=== PATIENT | male | born 1935 ===

== ENCOUNTER 2018-07-22 06:04 | Inpatient (IN) | payer MEDICARE ==
[2018-07-15 10:06] VITALS: BMI 25.7
[2018-07-22] MEDS ORDERED: Absorbable Gelatin Sponge Size 12-7 ONE (07:35)
[2018-07-22] MEDS ORDERED: Lidocaine 1% Inj (20ml) ONE (07:35)
[2018-07-22] MEDS ORDERED: Thrombin Topical 5,000 Int Units Spray Kit ONE (07:36)
[2018-07-22] MEDS ORDERED: Bacitracin Ointment 30 GM TUBE ONE (07:36)
[2018-07-22] MEDS ORDERED: ceFAZolin IV 1 gm in Dextrose 1 GM/50 ML BAG IVPB ONE (07:36)
--- NOTE | 2018-07-22 07:52 | CP.PCM.HP ---
Addendum entered by Isa Guerrero MD 07/22/18 19:25: Surrogate Decision maker - son Oscar Original Note: <Agus Barrera - Last Filed: 07/22/18 13:35> History of Present Illness - History of Present Illness History of Present Illness: Patient seen and examined at bedside. History from sons and chart. 83M with multiple co-morbidities c/o of continued right shoulder pain after surgery ~3yrs ago. He has agreed to elective revision of RIGHT shoulder. Today he denies SOB, chest pain, palpitations, dysuria, cough, calf pain. PMH: CAD, A-fib, AICD, Asthma, Hypothyroid PSH: b/l shoulder surgeries, AICD placement, PCI w/ stents x2 Present on Admission - Present on Admission Any Indicators Present on Admission: No Review of Systems - Constitutional Constitutional: absent: Chills, Fever, Headache - Cardiovascular Cardiovascular: absent: Chest Pain, Pedal Edema - Respiratory Respiratory: absent: Cough - Gastrointestinal Gastrointestinal: absent: Abdominal Pain, Loose Stools, Nausea, Vomiting - Integumentary Integumentary: absent: Rash, Swelling Past Patient History - Past Medical History & Family History Past Medical History?: Yes - Past Social History Smoking Status: Former Smoker - CARDIAC Hx Cardiac Disorders: Yes Hx Cardia Arrhythmia: Yes (afib) Hx Hypercholesterolemia: Yes Hx Hypertension: Yes Hx Hypotension: Yes Hx Pacemaker: Yes Other/Comment: cardiac pacemaker stent LAD - PULMONARY Hx Asthma: Yes (allergic) - NEUROLOGICAL Hx Neurological Disorder: No - HEENT Hx HEENT Problems: No - RENAL Hx Chronic Kidney Disease: No - ENDOCRINE/METABOLIC Hx Endocrine Disorders: No - HEMATOLOGICAL/ONCOLOGICAL Hx Blood Disorders: No - INTEGUMENTARY Hx Dermatological Problems: No - MUSCULOSKELETAL/RHEUMATOLOGICAL Hx Musculoskeletal Disorders: Yes Hx Arthritis: Yes - GASTROINTESTINAL Hx Gastrointestinal Disorders: Yes Hx Gastritis: Yes - GENITOURINARY/GYNECOLOGICAL Hx Genitourinary Disorders: No - PSYCHIATRIC Hx Psychophysiologic Disorder: No - SURGICAL HISTORY Hx Surgeries: Yes Hx Angioplasty: Yes (PTCA) Hx Arthroscopy: Yes (L shoulder) Hx Cataract Extraction: Yes Hx Coronary Stent: Yes (LAD) Hx Joint Replacement: Yes (Left TSA approx 2012, Right TSA approx 2014) - ANESTHESIA Hx Anesthesia: Yes Hx Anesthesia Reactions: No Meds Allergies/Adverse Reactions: Allergies Allergy/AdvReac Type Severity Reaction Status Date / Time No Known Allergies Allergy Verified 07/15/18 10:05 Physical Exam - Constitutional Appears: Well, Non-toxic, No Acute Distress - Head Exam Head Exam: ATRAUMATIC, NORMOCEPHALIC - Eye Exam Eye Exam: EOMI, Normal appearance - ENT Exam ENT Exam: Mucous Membranes Moist Additional comments: hearing loss in right ear, hearing aid to assist hearing in left ear - Neck Exam Neck exam: Positive for: Normal Inspection - Respiratory Exam Respiratory Exam: Clear to Auscultation Bilateral, NORMAL BREATHING PATTERN - Cardiovascular Exam Cardiovascular Exam: Irregular Rhythm. absent: JVD - GI/Abdominal Exam GI & Abdominal Exam: Normal Bowel Sounds, Soft - Extremities Exam Extremities exam: Positive for: normal capillary refill, pedal pulses present. Negative for: pedal edema - Back Exam Back exam: NORMAL INSPECTION - Neurological Exam Neurological exam: Alert, Oriented x3 - Psychiatric Exam Psychiatric exam: Normal Affect, Normal Mood - Skin Skin Exam: Dry, Intact, Warm Results - Vital Signs Recent Vital Signs: Last Vital Signs Temp 98.7 F 07/22/18 06:47 Pulse 61 07/22/18 06:50 Resp 20 07/22/18 06:47 BP 146/74 07/22/18 06:47 Pulse Ox 96 07/22/18 06:47 - Labs Labs: Laboratory Results - last 24 hr 07/22/18 06:30 Crossmatch See Detail BBK History Checked Patient has bt Assessment & Plan - Assessment and Plan (Free Text) Assessment: 83 yo male patient with extensive pmhx seen and examined in SDS today for right shoulder surgery. Plan: (1) Right shoulder pain Assessment and Plan: Pt failed conservative measures to control pain and now elective revision of RIGHT shoulder. All labs, imaging, cardiac clearance, EP evaluation, and medical clearance in chart. Repeat potassium for outpatient value of 5.5. 4.7 potassium taken last week. Patient otherwise remains medically optimized for proposed surgical procedure. Pain management, PT, and DVT prophylaxis to be addressed by orthopedics service post-op. - Admit - Revision RIGHT shoulder Status: Acute (2) CAD (coronary artery disease) Assessment and Plan: Stents x2, AICD in place and device interrogated 05/10/2018 without acute findings. Pradaxa stopped 07/18/2018 - EP eval after surgery - Resume medications post-op as appropriate Status: Acute (3) Atrial fibrillation Assessment and Plan: Patient has AICD in place and device was interrogated 05/10/2018 without acute findings. Pradaxa stopped 07/18/2018. - EP eval after surgery Status: Acute (4) Hypothyroid Assessment and Plan: Asymptomatic, TSH shows medication needs to be adjusted and will be addressed after surgical procedure. - Decrease Synthroid 88mcg down to 50mcg Status: Acute (5) Asthma Assessment and Plan: Asymptomatic, chronic, controlled. - Resume home medications post-op Status: Acute - Date & Time Date: 07/22/18 Time: 07:50 <Isa Guerrero Marifer - Last Filed: 07/22/18 16:44> Results - Vital Signs Recent Vital Signs: Last Vital Signs Temp 95.9 F L 07/22/18 16:00 Pulse 60 07/22/18 16:15 Resp 18 07/22/18 16:15 BP 117/66 07/22/18 16:15 Pulse Ox 100 07/22/18 16:15 - Labs Labs: Laboratory Results - last 24 hr 07/22/18 07/22/18 07/22/18 01:05 01:30 06:30 Fluid Type Synovial fluid Synovial fluid Synovial WBC 505.0 H 426.0 H Synovial RBC 95257.0 H 792937.0 H Synovial Neutrophils 62.0 H 69.0 H Synovial Lymphocytes 20.0 H 21.0 H Synov Monos/Macrophage 18 H 10 H Synovial Fluid Comment Moderately bloody Grossly bloody Blood Type A POSITIVE Antibody Screen Negative Crossmatch See Detail BBK History Checked Patient has bt 07/22/18 07/22/18 11:40 14:04 Fluid Type Synovial fluid Synovial fluid Synovial WBC 604.0 H 80.0 Synovial RBC 70488.9 H 80239.0 H Synovial Neutrophils 50.0 H 52.0 H Synovial Lymphocytes 32.0 H 33.0 H Synov Monos/Macrophage 18 H 15 H Synovial Fluid Comment Moderately bloody Bloody Blood Type Antibody Screen Crossmatch BBK History Checked Decision To Admit - Pt Status Changed To: Hospital Disposition Of: Inpatient - Admit Certification Admit to Inpatient:: After my assessment, the patient will require hospitalization for at least two midnights. This is because of the severity of symptoms shown, intensity of services needed, and/or the medical risk in this patient being treated as an outpatient. - . Bed Request Type: Telemetry Admitting Physician: Isa Guerrero Attending/Attestation - Attestation I have personally seen and examined this patient.: Yes I have fully participated in the care of the patient.: Yes I have reviewed all pertinent clinical information: Yes Notes (Text): Severe Pain Right Shoulder Replacement - scheduled for Revision - Pt was optimized by his Neurology Teacher ( Dr Laguna) and his PMD for this surgery - off Pradaxa the past 4 days - PT/OT consult
--- NOTE | 2018-07-22 08:07 | CP.PCM.CON ---
History of Present Illness - History of Present Illness History of Present Illness: Orthopedic consultation: Dr. Schaffer Patient is an 83 y/o RHD male with PMH of HTN, HLD, CAD with pacemaker and afib (on pradaxa, held x4 days) who presents for elective revision right TSR. Patient had history of right shoulder resurfacing/replacement approximately 3 years ago which has failed, making it extremely difficult to perform his usual activities. He also had successful left TSR in [address] Schaffer. He was scheduled for this surgery last week, but rescheduled due to instrument contamination. He denies radiation of pain/numbness/tingling. He also denies CP/SOB/N/V/D/fever/dysuria/melena. Review of Systems - Review of Systems All systems: reviewed and no additional remarkable complaints except Review of Systems: as per HPI Past Patient History - Past Medical History & Family History Past Medical History?: Yes Past Family History: Reviewed and not pertinent - Past Social History Smoking Status: Former Smoker Alcohol: None Drugs: Denies - CARDIAC Hx Cardiac Disorders: Yes Hx Cardia Arrhythmia: Yes (afib) Hx Hypercholesterolemia: Yes Hx Hypertension: Yes Hx Hypotension: Yes Hx Pacemaker: Yes Other/Comment: cardiac pacemaker stent LAD - PULMONARY Hx Asthma: Yes (allergic) - NEUROLOGICAL Hx Neurological Disorder: No - HEENT Hx HEENT Problems: No - RENAL Hx Chronic Kidney Disease: No - ENDOCRINE/METABOLIC Hx Endocrine Disorders: No - HEMATOLOGICAL/ONCOLOGICAL Hx Blood Disorders: No - INTEGUMENTARY Hx Dermatological Problems: No - MUSCULOSKELETAL/RHEUMATOLOGICAL Hx Musculoskeletal Disorders: Yes Hx Arthritis: Yes - GASTROINTESTINAL Hx Gastrointestinal Disorders: Yes Hx Gastritis: Yes - GENITOURINARY/GYNECOLOGICAL Hx Genitourinary Disorders: No - PSYCHIATRIC Hx Psychophysiologic Disorder: No - SURGICAL HISTORY Hx Surgeries: Yes Hx Angioplasty: Yes (PTCA) Hx Arthroscopy: Yes (L shoulder) Hx Cataract Extraction: Yes Hx Coronary Stent: Yes (LAD) Hx Joint Replacement: Yes (Left TSA approx 2012, Right TSA approx 2014) - ANESTHESIA Hx Anesthesia: Yes Hx Anesthesia Reactions: No Meds Allergies/Adverse Reactions: Allergies Allergy/AdvReac Type Severity Reaction Status Date / Time No Known Allergies Allergy Verified 07/15/18 10:05 - Medications Medications: as per Med rec Physical Exam - Constitutional Appears: Well, No Acute Distress - Head Exam Head Exam: ATRAUMATIC, NORMOCEPHALIC - Eye Exam Eye Exam: EOMI, Normal appearance, PERRL - ENT Exam ENT Exam: Mucous Membranes Moist Additional comments: L hearing aid - Respiratory Exam Respiratory Exam: NORMAL BREATHING PATTERN - GI/Abdominal Exam GI & Abdominal Exam: Soft. absent: Tenderness - Extremities Exam Additional comments: R shoulder: old deltopectoral incision well healed no tenderness, no swelling, no masses Limited ROM with pain sensation and motor intact MN/UN/RN radial pulse intact - Neurological Exam Neurological exam: Alert, Oriented x3 - Psychiatric Exam Psychiatric exam: Normal Affect, Normal Mood - Skin Skin Exam: Normal Color, Warm Results - Vital Signs Recent Vital Signs: Last Vital Signs Temp 98.7 F 07/22/18 06:47 Pulse 61 07/22/18 06:50 Resp 20 07/22/18 06:47 BP 146/74 07/22/18 06:47 Pulse Ox 96 07/22/18 06:47 - Labs Labs: Laboratory Results - last 24 hr 07/22/18 06:30 Blood Type A POSITIVE Antibody Screen Negative Crossmatch See Detail BBK History Checked Patient has bt Assessment & Plan (1) Pain due to right shoulder joint prosthesis Assessment and Plan: -OR today for revision R TSR -NPO -admit to hospitalist -Dr. Zurita consult for postop cardiac management -Risks/benefits/alternatives were explained to patient and 2 sons at bedside. They express understanding and agree to proceed with procedure above. -Above d/w Dr. Schaffer in agreement Status: Acute
[2018-07-22] MEDS ORDERED: Lactated Ringer's 1,000 ML IV ONE ×2 (08:44→13:33)
[2018-07-22] MEDS ORDERED: Rocuronium 10 mg/ml (5 ml) ONE ×2 (09:05→12:35)
[2018-07-22] MEDS ORDERED: Succinylcholine 200 mg/10 ml Inj IV ONE (09:05)
[2018-07-22] MEDS ORDERED: Etomidate 20 mg/10ml Inj IV ONE (09:05)
[2018-07-22] MEDS ORDERED: Propofol 10 mg/ml Inj (20 ML) ONE (09:05)
[2018-07-22] MEDS ORDERED: Sodium Chloride 0.9% 10 ML IV ONE (09:12)
[2018-07-22] MEDS ORDERED: Ropivacaine 0.5% 30ML IV ONE (09:14)
[2018-07-22] MEDS ORDERED: EPINEPHrine 1 mg/ml (1:1000) Inj ONE (11:51)
[2018-07-22] MEDS ORDERED: Sodium Chloride 0.9% 1,000 ML IV ONE (12:10)
[2018-07-22] MEDS ORDERED: Dexamethasone 4 mg/1 ml ONE (12:29)
[2018-07-22] MEDS ORDERED: EPINEPHrine 1 mg/ml (1:1000) Inj IV ONE (12:33)
[2018-07-22 13:05] LABS: FLUID TYPE SYNOVIAL FLUID
[2018-07-22 13:23] LABS: FLUID TYPE SYNOVIAL FLUID
[2018-07-22 13:35] LABS: FLUID TYPE SYNOVIAL FLUID
[2018-07-22] MEDS ORDERED: Neostigmine 1:1000 (1 mg/ml) Inj ONE (14:22)
[2018-07-22 15:04] LABS: SF GROSS APPEARANCE CLOUDY (CLEAR); SYNOVIAL FLUID COMMENT MODERATELY BLOODY
[2018-07-22 15:05] LABS: SF GROSS APPEARANCE CLOUDY (CLEAR); SYNOVIAL FLUID COMMENT MODERATELY BLOODY
[2018-07-22 15:07] LABS: SF GROSS APPEARANCE TURBID (CLEAR); SYNOVIAL FLUID COMMENT GROSSLY BLOODY
[2018-07-22 15:12] LABS: FLUID TYPE SYNOVIAL FLUID; SF GROSS APPEARANCE CLOUDY (CLEAR); SYNOVIAL FLUID COMMENT BLOODY
[2018-07-22] MEDS ORDERED: oxyCODONE 5 mg Immediate Release Tab PO PRN (15:20)
[2018-07-22] MEDS ORDERED: Dexamethasone 4 mg/1 ml IVP PRN (15:31)
[2018-07-22] MEDS ORDERED: HYDROmorphone 0.5 mg/0.5 ml ISec IVP PRN (15:31)
--- NOTE | 2018-07-22 15:35 | PCM.ANESB1 ---
Interscalene Block - Brachial Plexus Date of Procedure: 07/22/18 Anesthesiologist: Malcolm Pond Pre-Procedure Diagnosis: R shoulder arthritis Post-Procedure Diagnosis: R shoulder arthritis Procedure Performed: Interscalene Block of Brachial Plexus Right - Procedure Interscalene Block of Brachial Plexus: This procedure was explained to the patient that it is for post-operative pain management. Consent was obtained after a thorough discussion with the patient regarding the benefits and possible complications of local anesthetic block of the Brachial Plexus at the Interscalene area. The patient was brought to the Operating Room and standard monitors were applied. Time out was held with the circulating nurse to confirm the correct surgery and appropriate block. After applying Oxygen by nasal cannula and administering IV Sedation, the patient's head was gently rotated away from the Right operative shoulder and the anterior scalene groove was carefully palpated. The ultrasound transducer was then applied to the skin in the transverse plane and the brachial plexus was visualized lateral to the carotid artery and in between the anterior and middle scalene muscles. After identification,the anterior lateral portion of the neck was prepped with Chloroprep solution three times and Lidocaine 1% was injected subcutaneously for topical analgesia. At this point, a # 22 gauge Stimuplex 2 inches insulated needle was inserted into the interscalene groove and directed in a caudal and midline direction. The needle was inserted lateral to the ultrasound transducer in-plane towards the brachial plexus in a [id number] direction. Needle advancement was performed carefully under direct ultrasound visualization. Nerve stimulator was used and twitched of the affected extremity including the hand brachialis muscles, biceps and the deltoid was obtained at a current of 0.4 MA. After repeated negative aspiration, 30cc of 0.5% ropivacaine was injected in 5cc aliquots. Under ultrasound guidance the local anesthetics were observed surrounding the roots of the brachial plexus. The needle was removed intact and sterile dressing was applied. The patient had stable vital signs, was conscious and in no apparent distress. The patient tolerated the interscalene block of the bracheal plexus well with stable vital signs and was prepared for subsequent surgery.
--- NOTE | 2018-07-22 16:01 | PCM.SURG1 ---
Surgeon's Initial Post Op Note - Surgeon's Notes Surgeon: Sarbjit Seamless Tube Roller: ROMAN Adrian/ 2nd assist Colt Andres Type of Anesthesia: General Endo, Block Regional Anesthesia Administered By: DR Malcolm Pond Pre-Operative Diagnosis: Failed,Painful R total shoulder replacemnt Operative Findings: aseptic loosening humeral component. tear R rotator cuff. synvoitis/capsular contracture. no eviudence for deep sepsis Post-Operative Diagnosis: as above Operation Performed: Revision R Total Shoulder Replacement. primary repqair R rotator cuff. arthrotomy/synovectomy/debriement osteophytes. autograft bone graft Specimen/Specimens Removed: bone synovium/failed prosthesis Estimated Blood Loss: EBL {In ML}: 75 Blood Products Given: N/A Drains Used: Wound Vac Post-Op Condition: Fair Date of Surgery/Procedure: 07/22/18 Time of Surgery/Procedure: 12:40 (time inm room 10:52/ anetshesia indcution time 1052)
--- NOTE | 2018-07-22 16:06 | RAD ---
Date of service: 07/22/2018 PROCEDURE: Radiographs of the Right Shoulder HISTORY: s/p R revision TSR COMPARISON: No prior. FINDINGS: BONES: Postoperative findings related to right shoulder replacement JOINTS: Expected findings in the right shoulder joint in Agus soft tissues. SOFT TISSUES: Normal. OTHER FINDINGS: None. IMPRESSION: Satisfactory postoperative status.
[2018-07-22 16:09] LABS: SYNOVIAL FLUID MONO/MACROPHAGE 18 % (0-0)
[2018-07-22 16:10] LABS: SYNOVIAL FLUID MONO/MACROPHAGE 10 % (0-0)
[2018-07-22 16:10] LABS: SYNOVIAL FLUID MONO/MACROPHAGE 18 % (0-0)
[2018-07-22 16:11] LABS: SYNOVIAL FLUID MONO/MACROPHAGE 15 % (0-0)
[2018-07-22] MEDS ORDERED: Albuterol HFA 90 mcg/actuation (8 g) IH PRN (16:46)
[2018-07-22] MEDS ORDERED: ceFAZolin IV 2 gm in Dextrose 2 GM/50 ML BAG IVPB SCH (17:00)
[2018-07-22] MEDS: Lactated Ringer's 1,000 ML IV SCH (18:46)
[2018-07-22] MEDS: Fluticasone-Salmeterol 250-50mcg Diskus INH SCH ×2 (18:47→18:57)
--- NOTE | 2018-07-22 19:08 | CARD ---
APPROVED REPORT Date of service: 07/22/2018 EKG Measurement Heart [id number] <Conclusion> Atrial-paced rhythm with prolonged AV conduction Abnormal ECG
--- NOTE | 2018-07-22 19:27 | CP.PCM.PN ---
Subjective - Date & Time of Evaluation Date of Evaluation: 07/22/18 Time of Evaluation: 19:20 - Subjective Subjective: initial id note patient just out of O,R. HISTORY NOTED ON CHART AWAIT LABS AND CULTURES WILL GIVE I DOSE VANCOMYCIN REVIEW IN AM Objective - Vital Signs/Intake and Output Vital Signs (last 24 hours): Temp Pulse Resp BP Pulse Ox 98.4 F 63 18 116/61 97 07/22/18 17:30 07/22/18 19:03 07/22/18 17:30 07/22/18 17:30 07/22/18 17:30 Intake and Output: 07/22/18 07/23/18 18:59 06:59 Intake Total 2150 Output Total 700 Balance 1450 - Medications Medications: Current Medications Acetaminophen (Tylenol 325mg Tab) 975 mg PO Q8 [facility] Last Admin: 07/22/18 18:56 Dose: 975 mg Albuterol (Ventolin Hfa 90 Mcg/Actuation (8 G)) 90 puff IH RQID PRN PRN Reason: Wheezing Amlodipine Besylate (Norvasc) 5 mg PO DAILY [facility] Atorvastatin Calcium (Lipitor) 40 mg PO HS [facility] Docusate Sodium (Colace) 100 mg PO BID [facility] Last Admin: 07/22/18 18:48 Dose: 100 mg Lactated Ringer's (Lactated Ringer's) 1,000 mls @ 100 mls/hr IV .Q10H [facility] Last Admin: 07/22/18 18:46 Dose: 100 mls/hr Levothyroxine Sodium (Synthroid) 88 mcg PO DAILY@0630 [facility] Meclizine HCl (Antivert) 12.5 mg PO TID PRN PRN Reason: Dizziness Midodrine (Proamatine) 5 mg PO DAILY [facility] Montelukast Sodium (Singulair) 10 mg PO QPM [facility] Last Admin: 07/22/18 18:48 Dose: 10 mg Morphine Sulfate (Morphine) 2 mg IVP Q4 PRN PRN Reason: Pain, severe (8-10) Nitroglycerin (Nitrostat Sl Tab) 0.4 mg SL DAILY PRN PRN Reason: Pain, Mild (1-3) Ondansetron HCl (Zofran Inj) 4 mg IVP ONCE PRN PRN Reason: Nausea/Vomiting Oxycodone HCl (Oxycodone Immediate Release Tab) 5 mg PO Q6 PRN PRN Reason: Pain, Mild (1-3) Oxycodone HCl (Oxycodone Immediate Release Tab) 10 mg PO Q6 PRN PRN Reason: Pain, moderate (4-7) Fluticasone/Salmeterol (Advair Diskus 250/50) 1 puff INH BID [facility] Last Admin: 07/22/18 18:57 Dose: Not Given Theophylline (Francisco-24) 100 mg PO DAILY [facility]
[2018-07-23 05:40] LABS: HEMOGLOBIN 11.8 g/dL (12.0-18.0); MEAN CELL VOLUME 88.3 fl (80.0-94.0); MEAN CORPUSCULAR HEMOGLOBIN 29.4 pg (27.0-31.0); MEAN CORPUSCULAR HGB CONC 33.3 g/dL (33.0-37.0); RBC 4.01 Mil/uL (4.40-5.90); RED CELL DISTRIBUTION WIDTH 15.1 % (11.5-14.5); WHITE BLOOD COUNT 10.8 K/uL (4.8-10.8)
[2018-07-23] MEDS: Levothyroxine 88 MCG TAB PO SCH (05:51)
[2018-07-23 07:57] LABS: BLOOD UREA NITROGEN 22 mg/dl (9-20)
[2018-07-23 07:58] LABS: CALCIUM 8.9 mg/dL (8.4-10.2); GFR NON-AFRICAN AMERICAN 58
--- NOTE | 2018-07-23 07:58 | CP.PCM.PN ---
<Neil Barrerason - Last Filed: 07/23/18 16:05> Subjective - Date & Time of Evaluation Date of Evaluation: 07/23/18 Time of Evaluation: 07:58 - Subjective Subjective: 83 yo male patient seen and evaluated at bedside resting comfortably. Sons present to translate. States he is in minimal pain and comfortable. Seen by PT and states was able to ambulate with assistance of cane and sons around his home to help him with recovery. Denies N/V/F/C/SOB/CP and has no new acute complaints. Objective - Vital Signs/Intake and Output Vital Signs (last 24 hours): Temp Pulse Resp BP Pulse Ox 98 F 67 18 117/81 96 07/23/18 05:00 07/23/18 05:00 07/23/18 05:00 07/23/18 05:00 07/23/18 05:00 - Medications Medications: Current Medications Acetaminophen (Tylenol 325mg Tab) 975 mg PO Q8 [facility] Last Admin: 07/23/18 00:24 Dose: 975 mg Albuterol (Ventolin Hfa 90 Mcg/Actuation (8 G)) 90 puff IH RQID PRN PRN Reason: Wheezing Amlodipine Besylate (Norvasc) 5 mg PO DAILY [facility] Atorvastatin Calcium (Lipitor) 40 mg PO HS [facility] Last Admin: 07/22/18 22:00 Dose: 40 mg Docusate Sodium (Colace) 100 mg PO BID [facility] Last Admin: 07/22/18 18:48 Dose: 100 mg Lactated Ringer's (Lactated Ringer's) 1,000 mls @ 100 mls/hr IV .Q10H [facility] Last Admin: 07/22/18 18:46 Dose: 100 mls/hr Levothyroxine Sodium (Synthroid) 88 mcg PO DAILY@0630 [facility] Last Admin: 07/23/18 05:51 Dose: 88 mcg Meclizine HCl (Antivert) 12.5 mg PO TID PRN PRN Reason: Dizziness Midodrine (Proamatine) 5 mg PO DAILY [facility] Montelukast Sodium (Singulair) 10 mg PO QPM [facility] Last Admin: 07/22/18 18:48 Dose: 10 mg Morphine Sulfate (Morphine) 2 mg IVP Q4 PRN PRN Reason: Pain, severe (8-10) Nitroglycerin (Nitrostat Sl Tab) 0.4 mg SL DAILY PRN PRN Reason: Pain, Mild (1-3) Ondansetron HCl (Zofran Inj) 4 mg IVP ONCE PRN PRN Reason: Nausea/Vomiting Oxycodone HCl (Oxycodone Immediate Release Tab) 5 mg PO Q6 PRN PRN Reason: Pain, Mild (1-3) Oxycodone HCl (Oxycodone Immediate Release Tab) 10 mg PO Q6 PRN PRN Reason: Pain, moderate (4-7) Fluticasone/Salmeterol (Advair Diskus 250/50) 1 puff INH BID [facility] Last Admin: 07/22/18 18:57 Dose: Not Given Theophylline (Francisco-24) 100 mg PO DAILY [facility] - Labs Labs: 07/23/18 05:16 07/23/18 05:16 - Constitutional Appears: Well, Non-toxic, No Acute Distress - Head Exam Head Exam: ATRAUMATIC, NORMOCEPHALIC - Eye Exam Eye Exam: Normal appearance - ENT Exam ENT Exam: Mucous Membranes Moist Additional comments: hearing loss in right ear, hearing aid to assist hearing in left ear - Respiratory Exam Respiratory Exam: Clear to Ausculation Bilateral, NORMAL BREATHING PATTERN - Cardiovascular Exam Cardiovascular Exam: Irregular Rhythm. absent: JVD - GI/Abdominal Exam GI & Abdominal Exam: Soft, Normal Bowel Sounds - Extremities Exam Extremities Exam: Normal Capillary Refill. absent: Tenderness (pedal pulses present) Additional comments: Shoulder dressing c/d/i gross and neuro sensation and pulses intact - Back Exam Back Exam: NORMAL INSPECTION - Neurological Exam Neurological Exam: Alert, Awake, Oriented x3 - Psychiatric Exam Psychiatric exam: Normal Affect, Normal Mood - Skin Skin Exam: Dry, Warm Assessment and Plan - Assessment and Plan (Free Text) Assessment: 83 yo male patient with extensive pmhx seen and examined today POD 1 s/p right shoulder revisional surgery Plan: (1) Right shoulder pain Assessment and Plan: - orthopedist consulted - results appreciated f/u - stable from orthopedic standpoint - PT/OT saw and stable for discharge, ambulate with cane, sons around to participate in ambulation and recovery, benefit from skilled PT outpatient - POD 1 right shoulder revisional surgery - synovial fluid analysis x3 - 436 -- 604 -- 80 WBC; 69 -- 50 -- 52 neutrophils - wound cultures pending - f/u - fungal cultures pending - f/u - ID consulted - Dr. Elizabeth cabrera appreciated f/u - vanco 1 gm IVPB 1 dose 07/22 IV ( random vanc ordered - 7.2) - CPK ordered - 246 - 07/22 - 2g ancef - recommend 3 weeks IV abx - PICC line placement - Daptomycin and ertapenem - case management made aware - will be discharged home with medications tomorrow Status: Acute (2) CAD (coronary artery disease) Assessment and Plan: Stents x2, AICD in place and device interrogated 05/10/2018 without acute findings. Pradaxa stopped 07/18/2018 - per ortho to continue tomorrow - Resume medications post-op as appropriate Status: Acute (3) Atrial fibrillation Assessment and Plan: Patient has AICD in place and device was interrogated 05/10/2018 without acute findings. Pradaxa stopped 07/18/2018 - per ortho resume 07/24 - EP eval after surgery Status: Acute (4) Hypothyroid Assessment and Plan: Asymptomatic, TSH shows medication needs to be adjusted and will be addressed after surgical procedure. - Decrease Synthroid 88mcg down to 50mcg Status: Acute (5) Asthma Assessment and Plan: Asymptomatic, chronic, controlled. - Resume home medications post-op Status: Acute 6. DVT prophylaxis - SCDs - resume pradaxa 07/24 <Mic Chavez - Last Filed: 07/23/18 17:18> Objective - Vital Signs/Intake and Output Vital Signs (last 24 hours): Temp Pulse Resp BP Pulse Ox 98.2 F 60 20 126/70 93 L 07/23/18 16:21 07/23/18 16:21 07/23/18 16:21 07/23/18 16:21 07/23/18 16:21 - Medications Medications: Current Medications Acetaminophen (Tylenol 325mg Tab) 975 mg PO Q8 [facility] Last Admin: 07/23/18 00:24 Dose: 975 mg Albuterol (Ventolin Hfa 90 Mcg/Actuation (8 G)) 90 puff IH RQID PRN PRN Reason: Wheezing Amlodipine Besylate (Norvasc) 5 mg PO DAILY [facility] Last Admin: 07/23/18 08:48 Dose: 5 mg Atorvastatin Calcium (Lipitor) 40 mg PO HS [facility] Last Admin: 07/22/18 22:00 Dose: 40 mg Dabigatran (Pradaxa) 75 mg PO BID [facility]; Protocol Docusate Sodium (Colace) 100 mg PO BID [facility] Last Admin: 07/23/18 08:46 Dose: 100 mg Lactated Ringer's (Lactated Ringer's) 1,000 mls @ 100 mls/hr IV .Q10H [facility] Last Admin: 07/23/18 12:35 Dose: 100 mls/hr Levothyroxine Sodium (Synthroid) 88 mcg PO DAILY@0630 [facility] Last Admin: 07/23/18 05:51 Dose: 88 mcg Meclizine HCl (Antivert) 12.5 mg PO TID PRN PRN Reason: Dizziness Midodrine (Proamatine) 5 mg PO DAILY [facility] Last Admin: 07/23/18 08:46 Dose: 5 mg Montelukast Sodium (Singulair) 10 mg PO QPM [facility] Last Admin: 07/22/18 18:48 Dose: 10 mg Morphine Sulfate (Morphine) 2 mg IVP Q4 PRN PRN Reason: Pain, severe (8-10) Last Admin: 07/23/18 12:47 Dose: 2 mg Nitroglycerin (Nitrostat Sl Tab) 0.4 mg SL DAILY PRN PRN Reason: Pain, Mild (1-3) Ondansetron HCl (Zofran Inj) 4 mg IVP ONCE PRN PRN Reason: Nausea/Vomiting Oxycodone HCl (Oxycodone Immediate Release Tab) 5 mg PO Q6 PRN PRN Reason: Pain, Mild (1-3) Oxycodone HCl (Oxycodone Immediate Release Tab) 10 mg PO Q6 PRN PRN Reason: Pain, moderate (4-7) Last Admin: 07/23/18 15:46 Dose: 10 mg Fluticasone/Salmeterol (Advair Diskus 250/50) 1 puff INH BID [facility] Last Admin: 07/23/18 08:47 Dose: 1 puff Theophylline (Francisco-24) 100 mg PO DAILY [facility] Last Admin: 07/23/18 08:47 Dose: 100 mg - Labs Labs: 07/23/18 05:16 07/23/18 05:16 Attending/Attestation - Attestation I have personally seen and examined this patient.: Yes I have fully participated in the care of the patient.: Yes I have reviewed all pertinent clinical information, including history, physical exam and plan: Yes Notes (Text): right shoulder without pain dressing intact restart pradaxa maico per ortho await recommendations per ID picc line ordered discharge when able to setup iv abx at home after ID evaluation
--- NOTE | 2018-07-23 08:26 | CP.PCM.PN ---
Subjective - Date & Time of Evaluation Date of Evaluation: 07/23/18 Time of Evaluation: 08:00 - Subjective Subjective: Patient seen and examined at bedside comfortable. Pain is well controlled. Able to get OOB to bathroom, minimal assistance without difficulties. No acute events overnight. Denies CP/SOB/SINGLETON/fever. Objective - Vital Signs/Intake and Output Vital Signs (last 24 hours): Temp Pulse Resp BP Pulse Ox 98.1 F 60 18 113/48 L 98 07/23/18 08:00 07/23/18 08:00 07/23/18 08:00 07/23/18 08:00 07/23/18 08:00 - Medications Medications: Current Medications Acetaminophen (Tylenol 325mg Tab) 975 mg PO Q8 [facility] Last Admin: 07/23/18 00:24 Dose: 975 mg Albuterol (Ventolin Hfa 90 Mcg/Actuation (8 G)) 90 puff IH RQID PRN PRN Reason: Wheezing Amlodipine Besylate (Norvasc) 5 mg PO DAILY [facility] Atorvastatin Calcium (Lipitor) 40 mg PO HS [facility] Last Admin: 07/22/18 22:00 Dose: 40 mg Docusate Sodium (Colace) 100 mg PO BID [facility] Last Admin: 07/22/18 18:48 Dose: 100 mg Lactated Ringer's (Lactated Ringer's) 1,000 mls @ 100 mls/hr IV .Q10H [facility] Last Admin: 07/22/18 18:46 Dose: 100 mls/hr Levothyroxine Sodium (Synthroid) 88 mcg PO DAILY@0630 [facility] Last Admin: 07/23/18 05:51 Dose: 88 mcg Meclizine HCl (Antivert) 12.5 mg PO TID PRN PRN Reason: Dizziness Midodrine (Proamatine) 5 mg PO DAILY [facility] Montelukast Sodium (Singulair) 10 mg PO QPM [facility] Last Admin: 07/22/18 18:48 Dose: 10 mg Morphine Sulfate (Morphine) 2 mg IVP Q4 PRN PRN Reason: Pain, severe (8-10) Nitroglycerin (Nitrostat Sl Tab) 0.4 mg SL DAILY PRN PRN Reason: Pain, Mild (1-3) Ondansetron HCl (Zofran Inj) 4 mg IVP ONCE PRN PRN Reason: Nausea/Vomiting Oxycodone HCl (Oxycodone Immediate Release Tab) 5 mg PO Q6 PRN PRN Reason: Pain, Mild (1-3) Oxycodone HCl (Oxycodone Immediate Release Tab) 10 mg PO Q6 PRN PRN Reason: Pain, moderate (4-7) Fluticasone/Salmeterol (Advair Diskus 250/50) 1 puff INH BID [facility] Last Admin: 07/22/18 18:57 Dose: Not Given Theophylline (Francisco-24) 100 mg PO DAILY [facility] - Labs Labs: 07/23/18 05:16 07/23/18 05:16 - Extremities Exam Additional comments: R shoulder: Mild swelling and tenderness 2nd to surgery aquacel dressing CDI sensation intact AXN/MN/UN/RN motor intact MN/UN/RN radial pulse intact Assessment and Plan (1) Pain due to right shoulder joint prosthesis Assessment & Plan: POD #1 s/p revision R TSR -PT/OT NWB RUE -maintain shoulder imm -may restart pradaxa as per medicine -abx as per ID -orthopedically stable for discharge home today -F/u in office within 7-10 days -above d/w Dr. Schaffer in agreement Status: Acute
[2018-07-23] MEDS: Theophylline 100mg ER 24 hrs Cap PO SCH (08:47)
[2018-07-23] MEDS: Fluticasone-Salmeterol 250-50mcg Diskus INH SCH ×2 (08:47→17:15)
--- NOTE | 2018-07-23 08:59 | CP.PCM.CON ---
History of Present Illness - History of Present Illness History of Present Illness: THE PATIENT IS AN 83 YEAR MALE WHO HAD A REVISION OF A RIGHT SHOULDER REPLACEMENT BY DR KANG YESTERDAY AFTER FAILING CONSERVATIVE TREATMENT. I HAVE BEEN ASKED TO FOLLOW HIM. HE HAS A HISTORY OF CAD WITH 2 PRIOR STENTS, ATRIAL FIBRILLATION, AN AICD IMPLANTATION, HYPERTENSION AND HYPERLIPIDEMIA. HYPOTHYROIDISM AND ASTHMA. HIS ORIGINAL RIGHT SHOULDER SURGERY WAS 3 YEARS AGO AND HE ALSO HAD LEFT SHOULDER SURGERY IN THE PAST. 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 HE DENIES CHEST PAIN, PALPITATIONS OR SOB. Past Patient History - Past Medical History & Family History Past Medical History?: Yes Past Family History: Reviewed and not pertinent - Past Social History Smoking Status: Former Smoker Alcohol: None Drugs: Denies - CARDIAC Hx Cardiac Disorders: Yes Hx Cardia Arrhythmia: Yes (afib) Hx Hypercholesterolemia: Yes Hx Hypertension: Yes Hx Hypotension: Yes Hx Pacemaker: Yes Other/Comment: cardiac pacemaker stent LAD - PULMONARY Hx Asthma: Yes (allergic) - NEUROLOGICAL Hx Neurological Disorder: No - HEENT Hx HEENT Problems: No - RENAL Hx Chronic Kidney Disease: No - ENDOCRINE/METABOLIC Hx Endocrine Disorders: No - HEMATOLOGICAL/ONCOLOGICAL Hx Blood Disorders: No - INTEGUMENTARY Hx Dermatological Problems: No - MUSCULOSKELETAL/RHEUMATOLOGICAL Hx Musculoskeletal Disorders: Yes Hx Arthritis: Yes - GASTROINTESTINAL Hx Gastrointestinal Disorders: Yes Hx Gastritis: Yes - GENITOURINARY/GYNECOLOGICAL Hx Genitourinary Disorders: No - PSYCHIATRIC Hx Psychophysiologic Disorder: No - SURGICAL HISTORY Hx Surgeries: Yes Hx Angioplasty: Yes (PTCA) Hx Arthroscopy: Yes (L shoulder) Hx Cataract Extraction: Yes Hx Coronary Stent: Yes (LAD) Hx Joint Replacement: Yes (Left TSA approx 2012, Right TSA approx 2014) - ANESTHESIA Hx Anesthesia: Yes Hx Anesthesia Reactions: No Meds Home Medications: Home Medication List Medication Instructions Recorded Confirmed Type DAPTOmycin [Cubicin] 500 mg IV QOTHERDAY 21 Days #11 07/23/18 Rx vial Ertapenem [Invanz] 1 gm IV DAILY 21 Days #21 vial 07/23/18 Rx Allergies/Adverse Reactions: Allergies Allergy/AdvReac Type Severity Reaction Status Date / Time No Known Allergies Allergy Verified 07/15/18 10:05 - Medications Medications: Current Medications Acetaminophen (Tylenol 325mg Tab) 975 mg PO Q8 [facility] Last Admin: 07/23/18 00:24 Dose: 975 mg Albuterol (Ventolin Hfa 90 Mcg/Actuation (8 G)) 90 puff IH RQID PRN PRN Reason: Wheezing Amlodipine Besylate (Norvasc) 5 mg PO DAILY [facility] Last Admin: 07/23/18 08:48 Dose: 5 mg Atorvastatin Calcium (Lipitor) 40 mg PO HS [facility] Last Admin: 07/22/18 22:00 Dose: 40 mg Docusate Sodium (Colace) 100 mg PO BID [facility] Last Admin: 07/23/18 08:46 Dose: 100 mg Lactated Ringer's (Lactated Ringer's) 1,000 mls @ 100 mls/hr IV .Q10H [facility] Last Admin: 07/22/18 18:46 Dose: 100 mls/hr Levothyroxine Sodium (Synthroid) 88 mcg PO DAILY@0630 [facility] Last Admin: 07/23/18 05:51 Dose: 88 mcg Meclizine HCl (Antivert) 12.5 mg PO TID PRN PRN Reason: Dizziness Midodrine (Proamatine) 5 mg PO DAILY [facility] Last Admin: 07/23/18 08:46 Dose: 5 mg Montelukast Sodium (Singulair) 10 mg PO QPM [facility] Last Admin: 07/22/18 18:48 Dose: 10 mg Morphine Sulfate (Morphine) 2 mg IVP Q4 PRN PRN Reason: Pain, severe (8-10) Nitroglycerin (Nitrostat Sl Tab) 0.4 mg SL DAILY PRN PRN Reason: Pain, Mild (1-3) Ondansetron HCl (Zofran Inj) 4 mg IVP ONCE PRN PRN Reason: Nausea/Vomiting Oxycodone HCl (Oxycodone Immediate Release Tab) 5 mg PO Q6 PRN PRN Reason: Pain, Mild (1-3) Oxycodone HCl (Oxycodone Immediate Release Tab) 10 mg PO Q6 PRN PRN Reason: Pain, moderate (4-7) Fluticasone/Salmeterol (Advair Diskus 250/50) 1 puff INH BID [facility] Last Admin: 07/23/18 08:47 Dose: 1 puff Theophylline (Francisco-24) 100 mg PO DAILY [facility] Last Admin: 07/23/18 08:47 Dose: 100 mg Physical Exam - Respiratory Exam Respiratory Exam: Clear to Auscultation Bilateral - Cardiovascular Exam Cardiovascular Exam: REGULAR RHYTHM, +S1, +S2 - Extremities Exam Additional comments: RIGHT ARM AND SHOULDER IN A SLING - Additional Findings Additional findings: OR NOTES OF DR KANG REVIEWED WITH REVISION OF RIGHT SHOULDER REPLACEMENT, ROTATOR CUFF REPAIR, AUTOGRAFT BONE GRAFT PAT EKG WITH SINUS RHYTHM Results - Vital Signs Recent Vital Signs: Last Vital Signs Temp 98.1 F 07/23/18 08:00 Pulse 60 07/23/18 08:48 Resp 18 07/23/18 08:00 BP 113/48 L 07/23/18 08:48 Pulse Ox 98 07/23/18 08:00 - Labs Result Diagrams: 07/23/18 05:16 07/23/18 05:16 Labs: Laboratory Results - last 24 hr 07/22/18 07/22/18 07/22/18 01:05 01:30 11:40 WBC RBC Hgb Hct MCV MCH MCHC RDW Plt Count Sodium Potassium Chloride Carbon Dioxide Anion Gap BUN Creatinine Est GFR ( Amer) Est GFR (Non-Af Amer) Random Glucose Calcium Fluid Type Synovial fluid Synovial fluid Synovial fluid Synovial WBC 505.0 H 426.0 H 604.0 H Synovial RBC 70358.0 H 249849.0 H 66372.9 H Synovial Neutrophils 62.0 H 69.0 H 50.0 H Synovial Lymphocytes 20.0 H 21.0 H 32.0 H Synov Monos/Macrophage 18 H 10 H 18 H Synovial Fluid Comment Moderately bloody Grossly bloody Moderately bloody 07/22/18 07/23/18 07/23/18 14:04 05:16 05:16 WBC 10.8 RBC 4.01 L Hgb 11.8 L D Hct 35.4 MCV 88.3 MCH 29.4 MCHC 33.3 RDW 15.1 H Plt Count 197 Sodium 138 Potassium 5.2 H Chloride 111 H Carbon Dioxide 21 L Anion Gap 11 BUN 22 H Creatinine 1.2 Est GFR ( Amer) > 60 Est GFR (Non-Af Amer) 58 Random Glucose 135 H Calcium 8.9 Fluid Type Synovial fluid Synovial WBC 80.0 Synovial RBC 77022.0 H Synovial Neutrophils 52.0 H Synovial Lymphocytes 33.0 H Synov Monos/Macrophage 15 H Synovial Fluid Comment Bloody Assessment & Plan - Assessment and Plan (Free Text) Assessment: REVISION OR RIGHT SHOULDER SURGERY CAD WITH 2 STENT INSERTIONS HISTORY OF ATRIAL FIBRILLATION AND AICD IMPLANTATION-NOW IN SINUS RHYTHM HYPERTENSION HYPERLIPIDEMIA Plan: CONTINUE AMLODIPINE AND ATORVASTATIN PRAXADA PER DR KANG
--- NOTE | 2018-07-23 11:39 | CP.PCM.PN ---
Subjective - Date & Time of Evaluation Date of Evaluation: 07/23/18 Time of Evaluation: 11:38 - Subjective Subjective: Per mary Peace to restart pradaxa 07/24 am. Needs 3 weeks IV antibiotics due to elevated WBC in synovial fluid, as per Dr. Johnson. PICC line ordered. Orthopedically stable for d/c when above in place. Objective - Vital Signs/Intake and Output Vital Signs (last 24 hours): Temp Pulse Resp BP Pulse Ox 98.1 F 60 18 113/48 L 98 07/23/18 09:00 07/23/18 09:00 07/23/18 09:00 07/23/18 09:00 07/23/18 09:00 - Medications Medications: Current Medications Acetaminophen (Tylenol 325mg Tab) 975 mg PO Q8 [facility] Last Admin: 07/23/18 00:24 Dose: 975 mg Albuterol (Ventolin Hfa 90 Mcg/Actuation (8 G)) 90 puff IH RQID PRN PRN Reason: Wheezing Amlodipine Besylate (Norvasc) 5 mg PO DAILY [facility] Last Admin: 07/23/18 08:48 Dose: 5 mg Atorvastatin Calcium (Lipitor) 40 mg PO HS [facility] Last Admin: 07/22/18 22:00 Dose: 40 mg Docusate Sodium (Colace) 100 mg PO BID [facility] Last Admin: 07/23/18 08:46 Dose: 100 mg Lactated Ringer's (Lactated Ringer's) 1,000 mls @ 100 mls/hr IV .Q10H [facility] Last Admin: 07/22/18 18:46 Dose: 100 mls/hr Levothyroxine Sodium (Synthroid) 88 mcg PO DAILY@0630 [facility] Last Admin: 07/23/18 05:51 Dose: 88 mcg Meclizine HCl (Antivert) 12.5 mg PO TID PRN PRN Reason: Dizziness Midodrine (Proamatine) 5 mg PO DAILY [facility] Last Admin: 07/23/18 08:46 Dose: 5 mg Montelukast Sodium (Singulair) 10 mg PO QPM [facility] Last Admin: 07/22/18 18:48 Dose: 10 mg Morphine Sulfate (Morphine) 2 mg IVP Q4 PRN PRN Reason: Pain, severe (8-10) Nitroglycerin (Nitrostat Sl Tab) 0.4 mg SL DAILY PRN PRN Reason: Pain, Mild (1-3) Ondansetron HCl (Zofran Inj) 4 mg IVP ONCE PRN PRN Reason: Nausea/Vomiting Oxycodone HCl (Oxycodone Immediate Release Tab) 5 mg PO Q6 PRN PRN Reason: Pain, Mild (1-3) Oxycodone HCl (Oxycodone Immediate Release Tab) 10 mg PO Q6 PRN PRN Reason: Pain, moderate (4-7) Fluticasone/Salmeterol (Advair Diskus 250/50) 1 puff INH BID [facility] Last Admin: 07/23/18 08:47 Dose: 1 puff Theophylline (Francisco-24) 100 mg PO DAILY [facility] Last Admin: 07/23/18 08:47 Dose: 100 mg - Labs Labs: 07/23/18 05:16 07/23/18 05:16 Assessment and Plan (1) Pain due to right shoulder joint prosthesis Assessment & Plan: POD#1 s/p revision TSA Status: Acute (2) Acute blood loss anemia Assessment & Plan: VSS Status: Acute
[2018-07-23] MEDS: Lactated Ringer's 1,000 ML IV SCH (12:35)
[2018-07-23] MEDS: oxyCODONE 10 mg Immediate Release Tab PO PRN ×2 (15:46→21:35)
--- NOTE | 2018-07-23 18:56 | CP.PCM.PN ---
Subjective - Date & Time of Evaluation Date of Evaluation: 07/23/18 Time of Evaluation: 18:55 - Subjective Subjective: I D NOTE CULTURES ARE PENDING IN VIEW OF SYNOVIAL FLUID RESULTS WILL RX c IV ANTIBIOTICS X 4 WEEKS HAVE REVIEWED LABS ,AND DUE TO AGE,CARDIAC HISTORY & SOME NOTED RENAL INSUFFICIENCY(GFR IS 58) WILL RX c adjusted dose of [id number] ivpb q12 INITIALLY CONSIDERED DAPTOMYCIN BUT BASELINE CPK IS 246 WILL REPEAT OUTPATIENT. HAVE ALSO STARTED ERTAPENEM 500mg IVPB Q24N TO COVER POSSIBILITY OF GRAM NEGATIVE BACTERIA Objective - Vital Signs/Intake and Output Vital Signs (last 24 hours): Temp Pulse Resp BP Pulse Ox 98.2 F 60 20 126/70 93 L 07/23/18 16:21 07/23/18 16:21 07/23/18 16:21 07/23/18 16:21 07/23/18 16:21 Intake and Output: 07/23/18 07/23/18 06:59 18:59 Intake Total 2200 Output Total 3 Balance 2197 - Medications Medications: Current Medications Acetaminophen (Tylenol 325mg Tab) 975 mg PO Q8 [facility] Last Admin: 07/23/18 17:17 Dose: Not Given Albuterol (Ventolin Hfa 90 Mcg/Actuation (8 G)) 90 puff IH RQID PRN PRN Reason: Wheezing Amlodipine Besylate (Norvasc) 5 mg PO DAILY [facility] Last Admin: 07/23/18 08:48 Dose: 5 mg Atorvastatin Calcium (Lipitor) 40 mg PO HS [facility] Last Admin: 07/22/18 22:00 Dose: 40 mg Dabigatran (Pradaxa) 75 mg PO BID [facility]; Protocol Docusate Sodium (Colace) 100 mg PO BID [facility] Last Admin: 07/23/18 17:15 Dose: 100 mg Lactated Ringer's (Lactated Ringer's) 1,000 mls @ 100 mls/hr IV .Q10H [facility] Last Admin: 07/23/18 12:35 Dose: 100 mls/hr Vancomycin HCl 500 mg/ Sodium (Chloride) 100 mls @ 100 mls/hr IVPB Q12 [facility]; Protocol Ertapenem 0.5 gm/ Sodium (Chloride) 100 mls @ 100 mls/hr IVPB DAILY [facility]; Protocol Levothyroxine Sodium (Synthroid) 88 mcg PO DAILY@0630 [facility] Last Admin: 07/23/18 05:51 Dose: 88 mcg Meclizine HCl (Antivert) 12.5 mg PO TID PRN PRN Reason: Dizziness Midodrine (Proamatine) 5 mg PO DAILY [facility] Last Admin: 07/23/18 08:46 Dose: 5 mg Montelukast Sodium (Singulair) 10 mg PO QPM [facility] Last Admin: 07/23/18 17:19 Dose: 10 mg Morphine Sulfate (Morphine) 2 mg IVP Q4 PRN PRN Reason: Pain, severe (8-10) Last Admin: 07/23/18 12:47 Dose: 2 mg Nitroglycerin (Nitrostat Sl Tab) 0.4 mg SL DAILY PRN PRN Reason: Pain, Mild (1-3) Ondansetron HCl (Zofran Inj) 4 mg IVP ONCE PRN PRN Reason: Nausea/Vomiting Oxycodone HCl (Oxycodone Immediate Release Tab) 5 mg PO Q6 PRN PRN Reason: Pain, Mild (1-3) Oxycodone HCl (Oxycodone Immediate Release Tab) 10 mg PO Q6 PRN PRN Reason: Pain, moderate (4-7) Last Admin: 07/23/18 15:46 Dose: 10 mg Fluticasone/Salmeterol (Advair Diskus 250/50) 1 puff INH BID [facility] Last Admin: 07/23/18 17:15 Dose: 1 puff Theophylline (Francisco-24) 100 mg PO DAILY [facility] Last Admin: 07/23/18 08:47 Dose: 100 mg - Labs Labs: 07/23/18 05:16 07/23/18 05:16
[2018-07-24] MEDS: Levothyroxine 88 MCG TAB PO SCH (06:28)
--- NOTE | 2018-07-24 08:58 | CP.PCM.PN ---
Subjective - Date & Time of Evaluation Date of Evaluation: 07/24/18 Time of Evaluation: 08:56 - Subjective Subjective: Patient with son at bedside. States pain is controlled, denies CP/SOB/dizziness. No new complaints. Objective - Vital Signs/Intake and Output Vital Signs (last 24 hours): Temp Pulse Resp BP Pulse Ox 97.5 F L 65 20 132/69 94 L 07/24/18 08:50 07/24/18 08:50 07/24/18 08:50 07/24/18 08:50 07/24/18 08:50 Intake and Output: 07/24/18 07/24/18 06:59 18:59 Intake Total 1000 Output Total 900 Balance 100 - Medications Medications: Current Medications Acetaminophen (Tylenol 325mg Tab) 975 mg PO Q8 [facility] Last Admin: 07/24/18 01:00 Dose: Not Given Albuterol (Ventolin Hfa 90 Mcg/Actuation (8 G)) 90 puff IH RQID PRN PRN Reason: Wheezing Amlodipine Besylate (Norvasc) 5 mg PO DAILY [facility] Last Admin: 07/23/18 08:48 Dose: 5 mg Atorvastatin Calcium (Lipitor) 40 mg PO HS [facility] Last Admin: 07/23/18 21:36 Dose: 40 mg Dabigatran (Pradaxa) 75 mg PO BID [facility]; Protocol Docusate Sodium (Colace) 100 mg PO BID [facility] Last Admin: 07/23/18 17:15 Dose: 100 mg Lactated Ringer's (Lactated Ringer's) 1,000 mls @ 100 mls/hr IV .Q10H [facility] Last Admin: 07/23/18 12:35 Dose: 100 mls/hr Vancomycin HCl 500 mg/ Sodium (Chloride) 100 mls @ 100 mls/hr IVPB Q12 [facility]; Protocol Last Admin: 07/23/18 21:39 Dose: 100 mls/hr Ertapenem 0.5 gm/ Sodium (Chloride) 100 mls @ 100 mls/hr IVPB DAILY [facility]; Protocol Levothyroxine Sodium (Synthroid) 88 mcg PO DAILY@0630 [facility] Last Admin: 07/24/18 06:28 Dose: 88 mcg Meclizine HCl (Antivert) 12.5 mg PO TID PRN PRN Reason: Dizziness Midodrine (Proamatine) 5 mg PO DAILY [facility] Last Admin: 07/23/18 08:46 Dose: 5 mg Montelukast Sodium (Singulair) 10 mg PO QPM [facility] Last Admin: 07/23/18 17:19 Dose: 10 mg Morphine Sulfate (Morphine) 2 mg IVP Q4 PRN PRN Reason: Pain, severe (8-10) Last Admin: 07/23/18 12:47 Dose: 2 mg Nitroglycerin (Nitrostat Sl Tab) 0.4 mg SL DAILY PRN PRN Reason: Pain, Mild (1-3) Ondansetron HCl (Zofran Inj) 4 mg IVP ONCE PRN PRN Reason: Nausea/Vomiting Oxycodone HCl (Oxycodone Immediate Release Tab) 5 mg PO Q6 PRN PRN Reason: Pain, Mild (1-3) Oxycodone HCl (Oxycodone Immediate Release Tab) 10 mg PO Q6 PRN PRN Reason: Pain, moderate (4-7) Last Admin: 07/23/18 21:35 Dose: 10 mg Fluticasone/Salmeterol (Advair Diskus 250/50) 1 puff INH BID [facility] Last Admin: 07/23/18 17:15 Dose: 1 puff Theophylline (Francisco-24) 100 mg PO DAILY [facility] Last Admin: 07/23/18 08:47 Dose: 100 mg - Labs Labs: 07/23/18 05:16 07/23/18 05:16 - Extremities Exam Additional comments: Dressing changed. Incision intact, dry, no erythema. Tegaderm and gauze applied. +ROM fingers/wrist, sensation intact to rad/ulnar/med nerves +radial pulse, mild expected swelling. 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 Schaffer/Elizabeth maintain shoulder immobilizer keep incision clean and dry f/u 1-[address] Schaffer call for appt cx prelim negative, no fungal elements, no AFB on smear d/w Dr. Schaffer, agrees with above Status: Acute (2) Acute blood loss anemia Assessment & Plan: VSS labs today Status: Acute
[2018-07-24] MEDS: Fluticasone-Salmeterol 250-50mcg Diskus INH SCH (08:59)
[2018-07-24] MEDS: Theophylline 100mg ER 24 hrs Cap PO SCH (09:01)
[2018-07-24] MEDS: Lactated Ringer's 1,000 ML IV SCH (09:13)
--- NOTE | 2018-07-24 09:31 | CP.PCM.PN ---
Subjective - Date & Time of Evaluation Date of Evaluation: 07/14/18 Time of Evaluation: 08:30 - Subjective Subjective: NO CHEST PAIN OR SOB ONLY PAIN IS RIGHT SHOULDER SURGICAL PAIN Objective - Vital Signs/Intake and Output Vital Signs (last 24 hours): Temp Pulse Resp BP Pulse Ox 97.5 F L 65 20 132/69 94 L 07/24/18 08:50 07/24/18 09:00 07/24/18 08:50 07/24/18 09:00 07/24/18 08:50 Intake and Output: 07/24/18 07/24/18 06:59 18:59 Intake Total 1000 Output Total 900 Balance 100 - Medications Medications: Current Medications Acetaminophen (Tylenol 325mg Tab) 975 mg PO Q8 [facility] Last Admin: 07/24/18 09:05 Dose: 975 mg Albuterol (Ventolin Hfa 90 Mcg/Actuation (8 G)) 90 puff IH RQID PRN PRN Reason: Wheezing Amlodipine Besylate (Norvasc) 5 mg PO DAILY [facility] Last Admin: 07/24/18 09:00 Dose: 5 mg Atorvastatin Calcium (Lipitor) 40 mg PO HS [facility] Last Admin: 07/23/18 21:36 Dose: 40 mg Dabigatran (Pradaxa) 75 mg PO BID [facility]; Protocol Last Admin: 07/24/18 09:00 Dose: 75 mg Docusate Sodium (Colace) 100 mg PO BID [facility] Last Admin: 07/24/18 08:59 Dose: 100 mg Lactated Ringer's (Lactated Ringer's) 1,000 mls @ 100 mls/hr IV .Q10H [facility] Last Admin: 07/24/18 09:13 Dose: Not Given Vancomycin HCl 500 mg/ Sodium (Chloride) 100 mls @ 100 mls/hr IVPB Q12 [facility]; Protocol Last Admin: 07/24/18 08:58 Dose: 100 mls/hr Ertapenem 0.5 gm/ Sodium (Chloride) 100 mls @ 100 mls/hr IVPB DAILY [facility]; Protocol Levothyroxine Sodium (Synthroid) 88 mcg PO DAILY@0630 [facility] Last Admin: 07/24/18 06:28 Dose: 88 mcg Meclizine HCl (Antivert) 12.5 mg PO TID PRN PRN Reason: Dizziness Midodrine (Proamatine) 5 mg PO DAILY [facility] Last Admin: 07/24/18 09:00 Dose: 5 mg Montelukast Sodium (Singulair) 10 mg PO QPM [facility] Last Admin: 07/23/18 17:19 Dose: 10 mg Morphine Sulfate (Morphine) 2 mg IVP Q4 PRN PRN Reason: Pain, severe (8-10) Last Admin: 07/23/18 12:47 Dose: 2 mg Nitroglycerin (Nitrostat Sl Tab) 0.4 mg SL DAILY PRN PRN Reason: Pain, Mild (1-3) Ondansetron HCl (Zofran Inj) 4 mg IVP ONCE PRN PRN Reason: Nausea/Vomiting Oxycodone HCl (Oxycodone Immediate Release Tab) 5 mg PO Q6 PRN PRN Reason: Pain, Mild (1-3) Oxycodone HCl (Oxycodone Immediate Release Tab) 10 mg PO Q6 PRN PRN Reason: Pain, moderate (4-7) Last Admin: 07/23/18 21:35 Dose: 10 mg Fluticasone/Salmeterol (Advair Diskus 250/50) 1 puff INH BID [facility] Last Admin: 07/24/18 08:59 Dose: 1 puff Theophylline (Francisco-24) 100 mg PO DAILY [facility] Last Admin: 07/24/18 09:01 Dose: 100 mg - Labs Labs: 07/23/18 05:16 07/23/18 05:16 - Respiratory Exam Respiratory Exam: Clear to Ausculation Bilateral - Cardiovascular Exam Cardiovascular Exam: REGULAR RHYTHM, +S1, +S2 - Extremities Exam Additional comments: NO LE EDEMA RUE IN IMMOBILIZER - Additional Findings Additional findings: POTTERY STRIPER NSR Assessment and Plan - Assessment and Plan (Free Text) Assessment: S/P RIGHT SHOULDER REVISION CAD HISTORY OF ATRIAL FIBRILLATION-NOW IN NSR HYPERTENSION HYPERLIPIDEMIA Plan: CONTINUE ATORVASTATIN, AMLODIPINE AND PRADAXA FOR PICC LINE
[2018-07-24] MEDS ORDERED: Lidocaine 1% 5ml Abboject ONE (10:40)
--- NOTE | 2018-07-24 11:11 | CP.PCM.DIS ---
Provider - Provider Date of Admission: 07/22/18 15:20 Attending physician: Isa Guerrero MD Primary care physician: Daniel Schaffer III, MD Consults: cardiology - Dr. Zurita ortho - Dr. Schaffer ID - Dr. 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 07/22/18 14:15 Shoulder - Right Wound Culture - Preliminary NO GROWTH AFTER 24 HOURS 07/22/18 14:15 Shoulder - Right Gram Stain - Final 07/22/18 14:15 Shoulder - Right Anaerobic Culture - Final NO ANAEROBES ISOLATED. 07/22/18 14:15 Shoulder - Right Wound Culture - Preliminary NO GROWTH AFTER 24 HOURS 07/22/18 14:15 Shoulder - Right Gram Stain - Final 07/22/18 14:15 Shoulder - Right Anaerobic Culture - Final NO ANAEROBES ISOLATED. 07/22/18 14:15 Shoulder - Right Wound Culture - Preliminary NO GROWTH AFTER 24 HOURS 07/22/18 01:05 Body Fluid - Shoulder-Right Gram Stain - Final 07/22/18 01:05 Body Fluid - Shoulder-Right Anaerobic Culture - Final NO ANAEROBES ISOLATED. 07/22/18 01:05 Body Fluid - Shoulder-Right Body Fluid Culture - Preliminary NO GROWTH AFTER 24 HOURS 07/22/18 14:15 Shoulder - Right Gram Stain - Final 07/22/18 14:15 Shoulder - Right Anaerobic Culture - Final NO ANAEROBES ISOLATED. 07/22/18 14:15 Shoulder - Right Wound Culture - Preliminary NO GROWTH AFTER 24 HOURS 07/22/18 13:10 Body Fluid - Shoulder-Right Gram Stain - Final 07/22/18 13:10 Body Fluid - Shoulder-Right Anaerobic Culture - Final NO ANAEROBES ISOLATED. 07/22/18 13:10 Body Fluid - Shoulder-Right Body Fluid Culture - Preliminary NO GROWTH AFTER 24 HOURS 07/22/18 14:53 Body Fluid - Shoulder-Right Anaerobic Culture - Final NO ANAEROBES ISOLATED. 07/22/18 13:15 Body Fluid - Shoulder-Right Gram Stain - Final 07/22/18 13:15 Body Fluid - Shoulder-Right Anaerobic Culture - Final NO ANAEROBES ISOLATED. 07/22/18 13:15 Body Fluid - Shoulder-Right Body Fluid Culture - Preliminary NO GROWTH AFTER 24 HOURS 07/22/18 13:15 Body Fluid - Shoulder-Right Gram Stain - Final 07/22/18 13:15 Body Fluid - Shoulder-Right Body Fluid Culture - Preliminary NO GROWTH AFTER 24 HOURS 07/22/18 14:15 Shoulder - Right Gram Stain - Final 07/22/18 14:15 Shoulder - Right Wound Culture - Preliminary NO GROWTH AFTER 24 HOURS 07/22/18 14:15 Shoulder - Right Gram Stain - Final 07/22/18 14:15 Shoulder - Right Wound Culture - Preliminary NO GROWTH AFTER 24 HOURS 07/22/18 14:15 Shoulder - Right Gram Stain - Final 07/22/18 14:15 Shoulder - Right Wound Culture - Preliminary NO GROWTH AFTER 24 HOURS 07/22/18 14:15 Shoulder - Right Gram Stain - Final 07/22/18 14:15 Shoulder - Right Wound Culture - Preliminary NO GROWTH AFTER 24 HOURS 07/22/18 14:15 Shoulder - Right Gram Stain - Final 07/22/18 14:15 Shoulder - Right Wound Culture - Preliminary NO GROWTH AFTER 24 HOURS 07/22/18 14:15 Shoulder - Right Gram Stain - Final 07/22/18 14:15 Shoulder - Right Wound Culture - Preliminary NO GROWTH AFTER 24 HOURS 07/22/18 14:15 Shoulder - Right Gram Stain - Final 07/22/18 14:15 Shoulder - Right Wound Culture - Preliminary NO GROWTH AFTER 24 HOURS 07/22/18 14:15 Shoulder - Right Gram Stain - Final 07/22/18 14:15 Shoulder - Right Wound Culture - Preliminary NO GROWTH AFTER 24 HOURS 07/22/18 14:15 Shoulder - Right Gram Stain - Final 07/22/18 14:15 Shoulder - Right Wound Culture - Preliminary NO GROWTH AFTER 24 HOURS 07/22/18 14:15 Shoulder - Right Gram Stain - Final 07/22/18 14:15 Shoulder - Right Wound Culture - Preliminary NO GROWTH AFTER 24 HOURS 07/22/18 14:15 Shoulder - Right Gram Stain - Final 07/22/18 14:15 Shoulder - Right Wound Culture - Preliminary NO GROWTH AFTER 24 HOURS 07/22/18 14:15 Shoulder - Right Gram Stain - Final 07/22/18 14:15 Shoulder - Right Wound Culture - Preliminary NO GROWTH AFTER 24 HOURS 07/22/18 14:15 Shoulder - Right Gram Stain - Final 07/22/18 14:15 Shoulder - Right Wound Culture - Preliminary NO GROWTH AFTER 24 HOURS 07/22/18 14:15 Shoulder - Right Gram Stain - Final 07/22/18 14:15 Shoulder - Right Wound Culture - Preliminary NO GROWTH AFTER 24 HOURS 07/22/18 14:15 Shoulder - Right Gram Stain - Final 07/22/18 14:15 Shoulder - Right Wound Culture - Preliminary NO GROWTH AFTER 24 HOURS 07/22/18 14:15 Shoulder - Right Gram Stain - Final 07/22/18 14:15 Shoulder - Right Wound Culture - Preliminary NO GROWTH AFTER 24 HOURS 07/22/18 14:15 Shoulder - Right Gram Stain - Final 07/22/18 14:15 Shoulder - Right Wound Culture - Preliminary NO GROWTH AFTER 24 HOURS 07/22/18 14:15 Shoulder - Right Gram Stain - Final 07/22/18 14:15 Shoulder - Right Wound Culture - Preliminary NO GROWTH AFTER 24 HOURS 07/22/18 14:15 Shoulder - Right Gram Stain - Final 07/22/18 14:15 Shoulder - Right Wound Culture - Preliminary NO GROWTH AFTER 24 HOURS 07/22/18 14:15 Shoulder - Right Gram Stain - Final 07/22/18 14:15 Shoulder - Right Wound Culture - Preliminary NO GROWTH AFTER 24 HOURS 07/22/18 14:15 Shoulder - Right Gram Stain - Final 07/22/18 14:15 Shoulder - Right Wound Culture - Preliminary NO GROWTH AFTER 24 HOURS 07/22/18 14:15 Shoulder - Right Gram Stain - Final 07/22/18 14:15 Shoulder - Right Wound Culture - Preliminary NO GROWTH AFTER 24 HOURS 07/22/18 14:15 Shoulder - Right Gram Stain - Final 07/22/18 14:15 Shoulder - Right Wound Culture - Preliminary NO GROWTH AFTER 24 HOURS 07/22/18 14:15 Shoulder - Right Gram Stain - Final 07/22/18 14:15 Shoulder - Right Wound Culture - Preliminary NO GROWTH AFTER 24 HOURS 07/22/18 14:15 Shoulder - Right Gram Stain - Final 07/22/18 14:15 Shoulder - Right Wound Culture - Preliminary NO GROWTH AFTER 24 HOURS 07/22/18 14:15 Shoulder - Right Gram Stain - Final 07/22/18 14:15 Shoulder - Right Wound Culture - Preliminary NO GROWTH AFTER 24 HOURS 07/22/18 14:15 Shoulder - Right Gram Stain - Final 07/22/18 14:15 Shoulder - Right Wound Culture - Preliminary NO GROWTH AFTER 24 HOURS 07/22/18 14:15 Shoulder - Right Gram Stain - Final 07/22/18 14:15 Shoulder - Right Wound Culture - Preliminary NO GROWTH AFTER 24 HOURS 07/22/18 14:53 Other: Please Indicate Mycobacterial Culture - Preliminary 07/22/18 14:53 Other: Please Indicate Mycobacterial Culture - Preliminary 07/22/18 01:22 Other: Please Indicate Mycobacterial Culture - Preliminary 07/22/18 01:05 Other: Please Indicate Mycobacterial Culture - Preliminary 07/22/18 01:05 Shoulder Right Fungal Culture - Preliminary 07/22/18 14:53 Shoulder Right Fungal Culture - Preliminary Most Recent Lab Values WBC 10.8 K/uL (4.8-10.8) 07/23/18 05:16 RBC 4.01 Mil/uL (4.40-5.90) L 07/23/18 05:16 Hgb 11.8 g/dL (12.0-18.0) L D 07/23/18 05:16 Hct 35.4 % (35.0-51.0) 07/23/18 05:16 MCV 88.3 fl (80.0-94.0) 07/23/18 05:16 MCH 29.4 pg (27.0-31.0) 07/23/18 05:16 MCHC 33.3 g/dL (33.0-37.0) 07/23/18 05:16 RDW 15.1 % (11.5-14.5) H 07/23/18 05:16 Plt Count 197 K/uL (130-400) 07/23/18 05:16 Sodium 138 mmol/l (132-148) 07/23/18 05:16 Potassium 5.2 MMOL/L (3.6-5.0) H 07/23/18 05:16 Chloride 111 mmol/L (98-107) H 07/23/18 05:16 Carbon Dioxide 21 mmol/L (22-30) L 07/23/18 05:16 Anion Gap 11 (10-20) 07/23/18 05:16 BUN 22 mg/dl (9-20) H 07/23/18 05:16 Creatinine 1.2 mg/dl (0.8-1.5) 07/23/18 05:16 Est GFR ( Amer) > 60 07/23/18 05:16 Est GFR (Non-Af Amer) 58 07/23/18 05:16 Random Glucose 135 mg/dL (75-110) H 07/23/18 05:16 Calcium 8.9 mg/dL (8.4-10.2) 07/23/18 05:16 Total Creatine Kinase 246 U/L (55-170) H 07/23/18 12:41 Fluid Type Synovial fluid 07/22/18 14:04 Synovial WBC 80.0 /mm3 (0.0-150.0) 07/22/18 14:04 Synovial RBC 74394.0 /mm3 (0.0-0.0) H 07/22/18 14:04 Synovial Neutrophils 52.0 % (0-0) H 07/22/18 14:04 Synovial Lymphocytes 33.0 % (0-0) H 07/22/18 14:04 Synov Monos/Macrophage 15 % (0-0) H 07/22/18 14:04 Synovial Fluid Comment Bloody 07/22/18 14:04 Random Vancomycin 7.2 ug/mL 07/23/18 12:41 Blood Type A POSITIVE 07/22/18 06:30 Antibody Screen Negative 07/22/18 06:30 Crossmatch See Detail 07/22/18 06:30 BBK History Checked Patient has bt 07/22/18 06:30 - Hospital Course Hospital Course: 83 yo male patient with extensive pmhx presented to same day surgery for elective right shoulder revision surgery. Patient had failed outpatient treatment and therapy. Had a previous left should replacement with Dr. Schaffer and right shoulder was previously operated on by another doctor. Patient was admitted to floors after surgery to [facility] as previous cardiac history. In synovial fluid analysis elevated WBC and neutrophils, ID Dr. Johnson was consulted and recommended 3 weeks of IV abx as outpatient. Rx for vancomycin and ertapenem were dispensed and PICC line was inserted. Patient has good family support and lives with sons who will help with recovery process. PT/OT saw patient and stated stable for discharge to ambulate with cane and sons around to participate in recovery, would benefit from skilled PT outpatient. Ortho recommended stable for discharge and to keep dressing c/d/i and remain in shoulder immobilizer, will call for appointment with Dr. Schaffer as outpatient in 1-2 weeks for f/u. Preliminary cultures are negative and no AFB on smear. Cardiology was also consulted and Dr. Zurita recommended continue atorvastatin, amlodipine, and pradaxa. Pradaxa was restarted this morning per ortho recommedation. Random vanc trough was 7.2 and patient will be renally monitored. Patient is stable for discharge home. - Date & Time of H&P Date of H&P: 07/24/18 Time of H&P: 11:12 Discharge Exam - Head Exam Head Exam: ATRAUMATIC, NORMOCEPHALIC - Eye Exam Eye Exam: Normal appearance - ENT Exam ENT Exam: Mucous Membranes Moist Additional comments: hearing loss in right ear, hearing aid to assist hearing in left ear - Respiratory Exam Respiratory Exam: Clear to PA & Lateral, NORMAL BREATHING PATTERN - Cardiovascular Exam Cardiovascular Exam: Irregular Rhythm. absent: JVD - GI/Abdominal Exam GI & Abdominal Exam: Normal Bowel Sounds, Soft - Extremities Exam Extremities exam: normal capillary refill, pedal pulses present Additional comments: Shoulder dressing c/d/i gross and neuro sensation and pulses intact - Neurological Exam Neurological exam: Alert, Oriented x3 - Psychiatric Exam Psychiatric exam: Normal Affect, Normal Mood - Skin Skin Exam: Dry, Warm Discharge Plan - Discharge Medications Prescriptions: DAPTOmycin [Cubicin] 500 mg IV QOTHERDAY 21 Days #11 vial Ertapenem [Invanz] 1 gm IV DAILY 21 Days #21 vial Vancomycin 500mg in NS 500 mg IVPB Q12 21 Days #42 bag - Follow Up Plan Condition: GOOD Disposition: HOME/ ROUTINE Instructions: Shoulder Replacement (DC), Shoulder Pain (DC) Additional Instructions: keep picc line dressing dry and clean. maiintain shoulder immbolizer Referrals: Daniel Schaffer III, MD [Primary Care Provider] - Balta Johnson MD [Medical Doctor] - Clinical Quality Measures - Date & Time of Discharge Summary Date of Discharge Summary: 07/24/18 Time of Discharge Summary: 11:18
--- NOTE | 2018-07-24 11:59 | PCM.SURG1 ---
Surgeon's Initial Post Op Note - Surgeon's Notes Surgeon: Jigar Mandujano MD Supervisor Gate Services: NONE Type of Anesthesia: Local Pre-Operative Diagnosis: Poor venous access Operative Findings: US showed patent left brachial vein Post-Operative Diagnosis: Poor venous access Operation Performed: Single lumen picc left brachial vein, 47 CM. Specimen/Specimens Removed: NOne Estimated Blood Loss: EBL {In ML}: 2 Blood Products Given: N/A Drains Used: No Drains Post-Op Condition: Fair Date of Surgery/Procedure: 07/24/18 Time of Surgery/Procedure: 12:00
[2018-07-24 12:51] LABS: HEMOGLOBIN 10.2 g/dL (12.0-18.0); MEAN CELL VOLUME 88.7 fl (80.0-94.0); MEAN CORPUSCULAR HEMOGLOBIN 29.5 pg (27.0-31.0); MEAN CORPUSCULAR HGB CONC 33.3 g/dL (33.0-37.0); RBC 3.45 Mil/uL (4.40-5.90); RED CELL DISTRIBUTION WIDTH 15.5 % (11.5-14.5); WHITE BLOOD COUNT 4.9 K/uL (4.8-10.8)
[2018-07-24 13:11] LABS: BLOOD UREA NITROGEN 16 mg/dl (9-20); CALCIUM 8.4 mg/dL (8.4-10.2); GFR NON-AFRICAN AMERICAN > 60
--- NOTE | 2018-07-24 13:59 | VASCULAR ---
PROCEDURE: Date of procedure: 07/24/2018 Procedure: 1. Placement of a left arm PICC with ultrasound and fluoroscopic guidance, CPT 36668 2. PICC tip confirmation with spot radiograph and is in the superior vena cava Medications: 1 percent lidocaine Total Fluoro time: 10.4 seconds Radiation: 1.83 MGy EBL: 3 cc HISTORY: Poor venous access TECHNIQUE: Following informed consent and procedure time-out, the patient placed supine on the interventional table and the left arm prepped and draped in the usual sterile fashion. Ultrasound showed a patent and compressible left brachial vein. After the skin was anesthetized with lidocaine, the brachial vein was accessed with micro micropuncture technique using ultrasound guidance. A guidewire was then advanced under fluoroscopic guidance into the superior vena cava. An image documenting ultrasound guidance for vascular access was permanently saved. The length of a single-lumen 4 [place] PICC was trimmed to 47 cm and advanced through a peel-away sheath. The PICC was position with tip of PICC confirm a spot radiograph the superior vena cava. The PICC was secured to the patient's skin. The PICC was flushed. A biopatch and sterile dressing was applied. IMPRESSION: Placement of a single-lumen 4 [place] PICC left brachial vein trimmed to 47 cm. The tip of the PICC is confirmed with spot radiograph and is in the superior vena cava.
[2018-07-24 15:52] VITALS: BP 111/64; PULSE 60; RESP 17; TEMP 97.8; O2SAT 94
--- NOTE | 2018-07-25 00:53 | OP ---
PROCEDURE DATE: 07/22/2018 PREOPERATIVE DIAGNOSES: 1. Failed painful right total shoulder replacement. 2. Aseptic loosening of the humeral component. 3. Fracture of the proximal humerus. 4. Tear of the rotator cuff. 5. Synovitis and capsular contracture. 6. No evidence of deep sepsis. POSTOPERATIVE DIAGNOSES: 1. Failed painful right total shoulder replacement. 2. Proximal humeral fracture. 3. Tear of rotator cuff. 4. Synovitis and capsular contracture. OPERATIONS PERFORMED: 1. Revision of right total shoulder replacement. 2. Open reduction and internal fixation of proximal humerus fracture with cerclage #5 FiberWire. 3. Repair of right rotator cuff. 4. Arthrotomy, synovectomy, debridement of osteophytes. 5. Autograft bone graft to the proximal humerus. SPECIMENS REMOVED: Bone, synovium, failed prosthesis, and synovial fluid, which was sent to the lab for aerobic, anaerobic, AFB and fungal cultures as well as number of white cells per high-power field and stat Gram stain. SURGEON: Daniel Schaffer MD RESTAURANT OPERATIONS MANAGER: Meenu Berry, certified registered nursing heel sprayer first. SECOND BUILDING CONSTRUCTION CONTRACTOR: Colt Sierra PA-C BLOOD LOSS: 75 mL. BLOOD PRODUCTS: No blood products given. DRAINS USED: The patient has a PRASHANT wound VAC drain applied. POSTOPERATIVE CONDITION: Stable. DATE OF SURGERY: 07/22/2018 TIME: Time in the room 10:52, anesthesia induction time 10:52, incision time 12:40. OPERATIVE INDICATIONS: David Monge is an 83-year-old gentleman well known to my practice who presents after successful left total shoulder replacement arthroplasty done several years ago. The patient presented after right shoulder replacement arthroplasty done elsewhere. The patient had significant severe pain for several years. The patient was seen. Workup was accomplished. Pros, cons, risks and benefits of revision shoulder replacement arthroplasty were discussed at length with the patient and the family. The possibility of mechanical failure, infection, thromboembolic disease, possibility of secondary or tertiary surgery was discussed. The patient no longer withstands the discomfort. DESCRIPTION OF PROCEDURE: After having obtained informed consent in the above fashion from the patient and his two sons, after thoroughly discussing the possibility of stiffness, mechanical failure, infection, thromboembolic disease, possibility of secondary or tertiary surgery were discussed, the patient no longer withstands the discomfort and wished the surgery to be accomplished. The patient adamantly is aware of the of the pros, cons, risks and benefits. Informed consent having been obtained. The operation is to be carried out. After having obtained informed consent in the above fashion, after having identified side, site and procedure and critical pause/time-out, after the satisfactory induction of general and regional anesthesia by Dr. Malcolm Pond, the right upper extremity was prepped and free draped in the usual fashion for upper extremity surgery. The cervical spine was centralized. All bony prominences were well padded. The right upper extremity was prepped and free draped in the usual fashion for upper extremity surgery. The upper extremity was placed in the Arthrex shoulder positioner. The topographic anatomy of the shoulder was marked. The cervical spine was well positioned. All bony prominences were well padded. The distal scapula, the scapular spine was marked. The distal clavicle, acromion and coracoid process. This having been accomplished after having identified the topographic anatomy of the shoulder, after having identified side, site and procedure and critical pause/time-out, the initial incision that had been described was extended two to three fingerbreadths proximally and distally. Skin incision was carried down through the skin and subcutaneous tissue. An ellipse of skin was removed with skin, subcutaneous tissue and muscle. This having been accomplished, the deltopectoral interval was found to be obliterated. With the arm in external rotation, a plane taking great care to stay lateral to the coracoid process was developed. The strap muscles were identified and then plane was developed carefully using Metzenbaum scissors. Hemostasis controlled with Aquamantys. At this point in time, the rotator cuff was identified and was found to be torn. With external rotation, the prosthesis was identified. The remains of the rotator cuff were divided and tagged. This having been accomplished with further external rotation and with placement of a bent Hohmann retractor laterally, shoulder was dislocated anteriorly. There was found to be an extensive amount of sclerotic bone on the glenoid with evidence of osteophytes. This will be debrided. At this point in time, attention was turned to the humeral replacement which was essentially capped. This having been accomplished with the retractors carefully placed to protect the axillary nerve, the interface between the prosthesis and the bone was identified and carefully developed with an oscillating saw. The humeral cap shoulder replacement component was found to be loose, and this was removed. Photographs were taken at this point in time. This having been accomplished, the humeral cap having been removed. The proximal humerus was identified. At this point in time, the AMEZCUA proximal humeral guide was affixed, and the proximal humeral osteotomy was accomplished. This having been accomplished, the wound was thoroughly irrigated. The proximal humerus was identified and at this point in time, the humeral cap was provided. There was found to be a fracture of the proximal humerus and at this point in time, four aliquots of fluid were obtained from the joint. Stat Gram stain was sent for bacteria, number of white cells per high-power field, aerobic, anaerobic, AFB and fungal cultures were to be obtained. This having been accomplished, the shoulder was dislocated, the proximal humerus was identified. The shoulder humeral cap was removed. Open reduction and internal fixation of the proximal humerus was accomplished with a cerclage wire. Three interrupted FiberWire #5 sutures were used in a cerclage fashion to provide open reduction and internal fixation of the proximal humerus. The humeral cap was applied and the humerus was hyperextended and the glenoid was exposed. This having been accomplished using a 1/2-inch curved osteotome, the osteophytes were debrided from the glenoid both anteriorly and posteriorly and superiorly and inferiorly. Further debridement of the glenoid was accomplished using the humerus, this was found to be definite erosion and sclerosis from the three years of the humeral cap against the glenoid surface. This having been accomplished, the glenoid was sized and the guide pin was introduced. Reaming was accomplished with a large reamer. The standard sized glenosphere was to be employed. The rough areas of the glenoid were smoothed using the bur as well as further reaming commences, the version was found to be appropriate. The guidewire was introduced and at this point in time, reaming was accomplished. The standard glenoid plate was introduced and impacted. This having been accomplished, drill bits were accomplished superiorly and inferiorly with 20 and 26-mm screws, and they were introduced superiorly and inferiorly. The glenoid fixation was found to be excellent. The glenosphere was impacted in the appropriate attitude, and the screw was introduced. At this point in time, attention was turned to the humerus. Again open reduction and internal fixation of the proximal humerus was again accomplished using the cerclage FiberWire #5. Sequential broaching was carried down to a #19. The appropriate reaming was accomplished. The reduction was accomplished with two plates and the +3.5 plastic on the humeral side. Reduction was accomplished. There was found to be excellent stability in all planes. At this point in time, the 19-mm AMEZCUA stem was placed in the appropriate anteversion. The proximal humeral component was affixed by cold weld and with the screw. The secondary plate was applied and the 3.5 polyethylene was impacted. Autograft bone grafting to the proximal humerus was accomplished from the autograft bone. This having been accomplished, the humeral component was reduced to the glenosphere. The stability was found to be excellent. Mobility was found to be excellent. At this point in time, the Gram stain results were returned which revealed on the average two Gram stains with less than 5 white cells per high-power field and two with just a bit over 5 white cells. There was no evidence for deep sepsis in my opinion. The prosthesis is excellent and fit. Closures in layers with interrupted FiberWire followed by 0 Quill, 2-0 Quill, Vicryl and stella for skin. A compression dressing and shoulder immobilizers applied. OPERATIVE PROCEDURES: 1. Revision of right total shoulder replacement. 2. Open reduction and internal fixation of right proximal humerus fracture. 3. Permanent repair of right rotator cuff. 4. Arthrotomy, synovectomy and debridement of osteophytes. 5. Autograft bone graft to the humeral component. Daniel Schaffer MD
== END 2018-07-24 16:15 | disposition home health service (06) | DRG 493 ==
LOC: H.OPSURG 06:04 → H.TEL 15:20
PROVIDERS: ADMIT Internal Medicine; ATTEND Internal Medicine
PROC: 0PR Upper Bones, Replacement (ICD-10-PCS; 2018-07-22)
PROC: 3E0T3BZ Introduction of Anesthetic Agent into Peripheral Nerves and Plexi, Percutaneous Approach (ICD-10-PCS; 2018-07-22)
PROC: 3E0T33Z Introduction of Anti-inflammatory into Peripheral Nerves and Plexi, Percutaneous Approach (ICD-10-PCS; 2018-07-22)
PROC: 0RWJ0JZ Revision of Synthetic Substitute in Right Shoulder Joint, Open Approach (ICD-10-PCS; principal; 2018-07-22 10:45)
PROC: 0PSC04Z Reposition Right Humeral Head with Internal Fixation Device, Open Approach (ICD-10-PCS; 2018-07-22 10:45)
PROC: 02HV33Z Insertion of Infusion Device into Superior Vena Cava, Percutaneous Approach (ICD-10-PCS; 2018-07-23)
PROC: B548ZZA Ultrasonography of Superior Vena Cava, Guidance (ICD-10-PCS; 2018-07-23)
PROC: 3E04329 Introduction of Other Anti-infective into Central Vein, Percutaneous Approach (ICD-10-PCS; 2018-07-23)
DX: T84.038A Mechanical loosening of other internal prosthetic joint, initial encounter (principal); S42.209A Unspecified fracture of upper end of unspecified humerus, initial encounter for closed fracture; D62 Acute posthemorrhagic anemia; T84.84XA Pain due to internal orthopedic prosthetic devices, implants and grafts, initial encounter; M65.811 Other synovitis and tenosynovitis, right shoulder; M19.011 Primary osteoarthritis, right shoulder; G89.29 Other chronic pain; Z96.611 Presence of right artificial shoulder joint; I48.2 Chronic atrial fibrillation; I25.10 Atherosclerotic heart disease of native coronary artery without angina pectoris; Y83.1 Surgical operation with implant of artificial internal device as the cause of abnormal reaction of the patient, or of later complication, without mention of misadventure at the time of the procedure; I10 Essential (primary) hypertension; E03.9 Hypothyroidism, unspecified; E78.5 Hyperlipidemia, unspecified; E78.00 Pure hypercholesterolemia, unspecified; J45.909 Unspecified asthma, uncomplicated; Z95.810 Presence of automatic (implantable) cardiac defibrillator; Z95.5 Presence of coronary angioplasty implant and graft; Z79.02 Long term (current) use of antithrombotics/antiplatelets; Z87.891 Personal history of nicotine dependence; Y92.89 Other specified places as the place of occurrence of the external cause

== ENCOUNTER 2018-08-26 06:41 | Inpatient (IN) | payer MEDICARE ==
[2018-08-12 14:20] VITALS: BMI 26.6
[2018-08-26 07:34] LABS: BLOOD UREA NITROGEN 28 mg/dl (9-20); CALCIUM 9.4 mg/dL (8.4-10.2); GFR NON-AFRICAN AMERICAN 53
--- NOTE | 2018-08-26 07:40 | CP.PCM.HP ---
<Ruben Stevens - Last Filed: 08/26/18 11:54> History of Present Illness - History of Present Illness History of Present Illness: 83 yo male with PMH of HTN, HLD, CAD with pacemaker and Afib ( last dose of pradaxa 5 day ago) hypothyriodism present today for shoulder surgery by Dr. Schaffer. Pt state he have been complaining of RIGHT shoulder pain for past 3 years; he had a unsuccessful surgery back then and it was difficult to perform usual activities. Pt was seen by Dr. Isaacs and had surgery redone 3 week ago but upon post op visit, there was prosthesis dislocation noted on xray and need to be corrected. At moment patient pain is 6 out of 10, worsen with movement and palpation, he denies any trauma or fall. Pt have no fever chill, chest pain, sob, abdominal pain, diarrhea, constipation, dysuria or polyuria. Present on Admission - Present on Admission Any Indicators Present on Admission: No Review of Systems - Review of Systems All systems: reviewed and no additional remarkable complaints except Past Patient History - Past Medical History & Family History Past Medical History?: Yes - Past Social History Smoking Status: Never Smoked - CARDIAC Hx Cardiac Disorders: Yes Hx Cardia Arrhythmia: Yes (afib) Hx Hypercholesterolemia: Yes Hx Hypertension: Yes Hx Pacemaker: Yes Other/Comment: cardiac pacemaker stent LAD - PULMONARY Hx Respiratory Disorders: Yes Hx Asthma: Yes (allergic) - NEUROLOGICAL Hx Neurological Disorder: No - HEENT Hx HEENT Problems: No - RENAL Hx Chronic Kidney Disease: No - ENDOCRINE/METABOLIC Hx Endocrine Disorders: No - HEMATOLOGICAL/ONCOLOGICAL Hx Blood Disorders: No - INTEGUMENTARY Hx Dermatological Problems: No - MUSCULOSKELETAL/RHEUMATOLOGICAL Hx Musculoskeletal Disorders: Yes Hx Arthritis: Yes (shoulder) - GASTROINTESTINAL Hx Gastrointestinal Disorders: Yes Hx Gastritis: Yes - GENITOURINARY/GYNECOLOGICAL Hx Genitourinary Disorders: No - PSYCHIATRIC Hx Psychophysiologic Disorder: No - SURGICAL HISTORY Hx Surgeries: Yes Hx Angioplasty: Yes (PTCA) Hx Arthroscopy: Yes (L shoulder) Hx Cataract Extraction: Yes Hx Coronary Stent: Yes (LAD) Hx Joint Replacement: Yes (Left TSA approx 2013, Right TSA approx 2014) - ANESTHESIA Hx Anesthesia: Yes Hx Anesthesia Reactions: No Has any member of the family had a problem w/ anesthesia?: No Meds Allergies/Adverse Reactions: Allergies Allergy/AdvReac Type Severity Reaction Status Date / Time No Known Allergies Allergy Verified 08/26/18 08:15 Physical Exam - Constitutional Appears: Well, Non-toxic, No Acute Distress - Head Exam Head Exam: ATRAUMATIC, NORMAL INSPECTION, NORMOCEPHALIC - Eye Exam Eye Exam: EOMI, Normal appearance, PERRL Pupil Exam: NORMAL ACCOMODATION, PERRL - ENT Exam ENT Exam: Mucous Membranes Moist, Normal Exam - Neck Exam Neck exam: Positive for: Normal Inspection - Respiratory Exam Respiratory Exam: Clear to Auscultation Bilateral, NORMAL BREATHING PATTERN Additional comments: Pacemaker able to be palpated - Cardiovascular Exam Cardiovascular Exam: REGULAR RHYTHM, +S1, +S2 - GI/Abdominal Exam GI & Abdominal Exam: Normal Bowel Sounds, Soft - Extremities Exam Extremities exam: Positive for: normal inspection Additional comments: PICC line on LEFT arm - Back Exam Back exam: NORMAL INSPECTION - Neurological Exam Neurological exam: Alert - Psychiatric Exam Psychiatric exam: Normal Affect, Normal Mood - Skin Skin Exam: Dry, Intact, Normal Color, Warm Results - Vital Signs Recent Vital Signs: Last Vital Signs Temp 98 F 08/26/18 07:34 Pulse 96 H 08/26/18 07:34 Resp 18 08/26/18 07:34 BP Pulse Ox 94 L 08/26/18 07:34 - Labs Result Diagrams: 08/26/18 10:03 08/26/18 07:10 Labs: Laboratory Results - last 24 hr 08/26/18 07:10 Sodium 141 Potassium 4.9 Chloride 109 H Carbon Dioxide 26 Anion Gap 11 BUN 28 H Creatinine 1.3 Est GFR ( Amer) > 60 Est GFR (Non-Af Amer) 53 Random Glucose 106 Calcium 9.4 Assessment & Plan - Assessment and Plan (Free Text) Assessment: 83 yo male with PMH of HTN, HLD, CAD with pacemaker and Afib ( last dose of pradaxa 5 day ago) hypothyroidism present today for RIGHT shoulder surgery by Dr. Schaffer. RIGHT shoulder Surgery Plan Perform surgery today Await recommendation from ortho. <Isa Guerrero - Last Filed: 08/26/18 16:02> Results - Vital Signs Recent Vital Signs: Last Vital Signs Temp 98 F 08/26/18 07:34 Pulse 96 H 08/26/18 08:22 Resp 18 08/26/18 07:34 BP Pulse Ox 94 L 08/26/18 07:34 - Labs Result Diagrams: 08/26/18 10:03 08/26/18 07:10 Labs: Laboratory Results - last 24 hr 08/26/18 08/26/18 08/26/18 07:10 07:10 08:34 WBC RBC Hgb Hct MCV MCH MCHC RDW Plt Count MPV Neut % (Auto) Lymph % (Auto) [place] % (Auto) Eos % (Auto) Baso % (Auto) Neut # (Auto) Lymph # (Auto) [place] # (Auto) Eos # (Auto) Baso # (Auto) PT 11.7 INR 1.0 APTT 29.9 Sodium 141 Potassium 4.9 Chloride 109 H Carbon Dioxide 26 Anion Gap 11 BUN 28 H Creatinine 1.3 Est GFR ( Amer) > 60 Est GFR (Non-Af Amer) 53 Random Glucose 106 Calcium 9.4 Urine Color Urine Clarity Urine pH Ur Specific [place] Urine Protein Urine Glucose (UA) Urine Ketones Urine Blood Urine Nitrate Urine Bilirubin Urine Urobilinogen Ur Leukocyte Esterase Urine RBC (Auto) Urine Microscopic WBC Hyaline Casts Fluid Type Blood Type A POSITIVE Antibody Screen Negative Crossmatch See Detail BBK History Checked Patient has bt 08/26/18 08/26/18 08/26/18 08:40 10:03 14:57 WBC 6.5 RBC 4.45 Hgb 12.6 D Hct 39.9 MCV 89.7 MCH 28.4 MCHC 31.7 L RDW 15.4 H Plt Count 244 MPV 9.5 Neut % (Auto) 65.1 Lymph % (Auto) 20.9 [place] % (Auto) 7.2 Eos % (Auto) 5.5 H Baso % (Auto) 1.3 Neut # (Auto) 4.2 Lymph # (Auto) 1.4 [place] # (Auto) 0.5 Eos # (Auto) 0.4 Baso # (Auto) 0.1 PT INR APTT Sodium Potassium Chloride Carbon Dioxide Anion Gap BUN Creatinine Est GFR ( Amer) Est GFR (Non-Af Amer) Random Glucose Calcium Urine Color Yellow Urine Clarity Slighty-cloudy Urine pH 6.0 Ur Specific [place] 1.017 Urine Protein Negative Urine Glucose (UA) Neg Urine Ketones Negative Urine Blood Negative Urine Nitrate Negative Urine Bilirubin Negative Urine Urobilinogen 2.0 Ur Leukocyte Esterase Neg Urine RBC (Auto) 2 Urine Microscopic WBC 1 Hyaline Casts 6-10 H Fluid Type Synovial fluid Blood Type Antibody Screen Crossmatch BBK History Checked Decision To Admit - Pt Status Changed To: Hospital Disposition Of: Inpatient - Admit Certification Admit to Inpatient:: After my assessment, the patient will require hospitalizat ion for at least two midnights. This is because of the severity of symptoms shown, intensity of services needed, and/or the medical risk in this patient being treated as an outpatient. - . Bed Request Type: Med/Surg Admitting Physician: Isa Guerrero Attending/Attestation - Attestation I have personally seen and examined this patient.: Yes I have fully participated in the care of the patient.: Yes I have reviewed all pertinent clinical information: Yes Notes (Text): (1) Right shoulder pain Hx of Right Shoulder Replacement 3 yrs ago and Revision Oct Pt came in bec of pain- plan for Revision today by Dr Schaffer Pt was preop optimized by his rn ostomy as outpt (2) CAD (coronary artery disease) Hx Stents x2, AICD in place and device interrogated 05/10/2018 without acute findings. Pradaxa stopped 5days ago - Resume medications post-op (3) Atrial fibrillation Patient has AICD in place and device was interrogated 05/10/2018 without acute findings. Pradaxa stopped 5 days ago (4) Hypothyroidism rpt TSH , resume Levothyroxine post op (5) Asthma, mild intermittent Asymptomatic, chronic, controlled. - Resume home medications post-op
[2018-08-26 08:48] LABS: PROTHROMBIN TIME 11.7 Seconds (9.8-13.1)
[2018-08-26 08:50] LABS: PARTIAL THROMBOPLASTIN TIME 29.9 Seconds (25.6-37.1)
[2018-08-26 08:57] LABS: URINE BILIRUBIN NEGATIVE (NEGATIVE); URINE BLOOD NEGATIVE (NEGATIVE); URINE CLARITY SLIGHTY-CLOUDY (Clear); URINE COLOR YELLOW (YELLOW); URINE GLUCOSE (UA) NEG (Normal); URINE LEUKOCYTE ESTERASE NEG Leu/uL (Negative); URINE PROTEIN NEGATIVE (NEGATIVE)
--- NOTE | 2018-08-26 09:44 | CP.PCM.CON ---
History of Present Illness - History of Present Illness History of Present Illness: Orthopedic consultation: Dr. Schaffer Patient is an 83 y/o RHD male with PMH of HTN, HLD, CAD with pacemaker and afib (on pradaxa, last dose 5 days ago) who presents for revision right TSR. Patient presented to Dr. Schaffer's office postop and upon repeat xrays, found that his R shoulder prosthesis had dislocated. The patient has had no witnessed falls or trauma recently. Currently his pain is mild and does not require pain medication. He has had history of right shoulder resurfacing/replacement approximately 3 years ago which has failed, making it extremely difficult to perform his usual activities. He also had successful left TSR in [address] Schaffer. He denies radiation of pain/numbness/tingling. He also denies CP/S OB/N/V/D/fever/dysuria/melena. Review of Systems - Review of Systems All systems: reviewed and no additional remarkable complaints except Review of Systems: as per HPI Past Patient History - Past Medical History & Family History Past Medical History?: Yes Past Family History: Reviewed and not pertinent - Past Social History Smoking Status: Never Smoked Alcohol: None Drugs: Denies - CARDIAC Hx Cardiac Disorders: Yes Hx Cardia Arrhythmia: Yes (afib) Hx Hypercholesterolemia: Yes Hx Hypertension: Yes Hx Pacemaker: Yes Other/Comment: cardiac pacemaker stent LAD - PULMONARY Hx Respiratory Disorders: Yes Hx Asthma: Yes (allergic) - NEUROLOGICAL Hx Neurological Disorder: No - HEENT Hx HEENT Problems: No - RENAL Hx Chronic Kidney Disease: No - ENDOCRINE/METABOLIC Hx Endocrine Disorders: No - HEMATOLOGICAL/ONCOLOGICAL Hx Blood Disorders: No - INTEGUMENTARY Hx Dermatological Problems: No - MUSCULOSKELETAL/RHEUMATOLOGICAL Hx Musculoskeletal Disorders: Yes Hx Arthritis: Yes (shoulder) - GASTROINTESTINAL Hx Gastrointestinal Disorders: Yes Hx Gastritis: Yes - GENITOURINARY/GYNECOLOGICAL Hx Genitourinary Disorders: No - PSYCHIATRIC Hx Psychophysiologic Disorder: No - SURGICAL HISTORY Hx Surgeries: Yes Hx Angioplasty: Yes (PTCA) Hx Arthroscopy: Yes (L shoulder) Hx Cataract Extraction: Yes Hx Coronary Stent: Yes (LAD) Hx Joint Replacement: Yes (Left TSA approx 2013, Right TSA approx 2014) - ANESTHESIA Hx Anesthesia: Yes Hx Anesthesia Reactions: No Has any member of the family had a problem w/ anesthesia?: No Meds Allergies/Adverse Reactions: Allergies Allergy/AdvReac Type Severity Reaction Status Date / Time No Known Allergies Allergy Verified 08/26/18 08:15 - Medications Medications: as per med Rec Physical Exam - Constitutional Appears: Well, No Acute Distress - Head Exam Head Exam: ATRAUMATIC, NORMOCEPHALIC - Eye Exam Eye Exam: EOMI, Normal appearance, PERRL - ENT Exam ENT Exam: Mucous Membranes Moist - Respiratory Exam Respiratory Exam: NORMAL BREATHING PATTERN - Cardiovascular Exam Cardiovascular Exam: +S1, +S2 - GI/Abdominal Exam GI & Abdominal Exam: Soft. absent: Tenderness - Extremities Exam Additional comments: R shoulder: Delto pectoral incision CDI, no drainage diffuse tenderness + deformity sensation and motor intact MN/UN/RN radial pulse intact - Neurological Exam Neurological exam: Alert, Oriented x3 - Psychiatric Exam Psychiatric exam: Normal Affect, Normal Mood - Skin Skin Exam: Normal Color, Warm Results - Vital Signs Recent Vital Signs: Last Vital Signs Temp 98 F 08/26/18 07:34 Pulse 96 H 08/26/18 08:22 Resp 18 08/26/18 07:34 BP Pulse Ox 94 L 08/26/18 07:34 - Labs Result Diagrams: 08/26/18 10:03 08/26/18 07:10 Labs: Laboratory Results - last 24 hr 08/26/18 08/26/18 08/26/18 07:10 07:10 08:34 PT 11.7 INR 1.0 APTT 29.9 Sodium 141 Potassium 4.9 Chloride 109 H Carbon Dioxide 26 Anion Gap 11 BUN 28 H Creatinine 1.3 Est GFR ( Amer) > 60 Est GFR (Non-Af Amer) 53 Random Glucose 106 Calcium 9.4 Urine Color Urine Clarity Urine pH Ur Specific [place] Urine Protein Urine Glucose (UA) Urine Ketones Urine Blood Urine Nitrate Urine Bilirubin Urine Urobilinogen Ur Leukocyte Esterase Urine RBC (Auto) Urine Microscopic WBC Hyaline Casts Blood Type A POSITIVE Antibody Screen Negative Crossmatch See Detail BBK History Checked Patient has bt 08/26/18 08:40 PT INR APTT Sodium Potassium Chloride Carbon Dioxide Anion Gap BUN Creatinine Est GFR ( Amer) Est GFR (Non-Af Amer) Random Glucose Calcium Urine Color Yellow Urine Clarity Slighty-cloudy Urine pH 6.0 Ur Specific [place] 1.017 Urine Protein Negative Urine Glucose (UA) Neg Urine Ketones Negative Urine Blood Negative Urine Nitrate Negative Urine Bilirubin Negative Urine Urobilinogen 2.0 Ur Leukocyte Esterase Neg Urine RBC (Auto) 2 Urine Microscopic WBC 1 Hyaline Casts 6-10 H Blood Type Antibody Screen Crossmatch BBK History Checked Assessment & Plan (1) Dislocation of prosthetic shoulder joint Assessment and Plan: -Dr. Schaffer proposes R revision TSR today in OR -Risks/benefits/alternatives were explained to patient and son at bedside. They express understanding and agree to proceed with above procedure -NPO -Admit to hospitalist -above d/w Dr. Schaffer in agreement Status: Acute
[2018-08-26] MEDS ORDERED: Lactated Ringer's 1,000 ML IV ONE (10:00)
[2018-08-26 10:13] LABS: BASO # 0.1 K/uL (0.0-0.2); BASO % 1.3 % (0.0-2.0); EOS # 0.4 K/uL (0.0-0.7); EOS % 5.5 % (0.0-4.0); HEMOGLOBIN 12.6 g/dL (12.0-18.0); LYMPH # 1.4 K/uL (1.0-4.3); LYMPH % 20.9 % (20.0-40.0); MEAN CELL VOLUME 89.7 fl (80.0-94.0); MEAN CORPUSCULAR HEMOGLOBIN 28.4 pg (27.0-31.0); MEAN CORPUSCULAR HGB CONC 31.7 g/dL (33.0-37.0); MEAN PLATELET VOLUME 9.5 fl (7.2-11.7); MONO # 0.5 K/uL (0.0-0.8); MONO % 7.2 % (0.0-10.0); NEUT # 4.2 K/uL (1.8-7.0); NEUT % 65.1 % (50.0-75.0); NRBC % 0.1 % (0.0-0.0); RBC 4.45 Mil/uL (4.40-5.90); RED CELL DISTRIBUTION WIDTH 15.4 % (11.5-14.5); WHITE BLOOD COUNT 6.5 K/uL (4.8-10.8)
[2018-08-26] MEDS ORDERED: EPINEPHrine 1 mg/ml (1:1000) Inj ONE ×2 (10:55→13:27)
[2018-08-26] MEDS ORDERED: Bacitracin Ointment 30 GM TUBE ONE (10:56)
[2018-08-26] MEDS ORDERED: Absorbable Gelatin Sponge Size 12-7 ONE (10:56)
[2018-08-26] MEDS ORDERED: Thrombin Topical 5,000 Int Units Spray Kit ONE (10:56)
[2018-08-26] MEDS ORDERED: Etomidate 20 mg/10ml Inj IV ONE ×2 (13:09→13:21)
[2018-08-26] MEDS ORDERED: Rocuronium 10 mg/ml (5 ml) ONE ×2 (13:12→15:32)
[2018-08-26] MEDS ORDERED: Succinylcholine 200 mg/10 ml Inj IV ONE (13:12)
[2018-08-26] MEDS ORDERED: Propofol 10 mg/ml Inj (20 ML) ONE (13:21)
[2018-08-26] MEDS ORDERED: Lidocaine 4% (Laryng-O-Jet) Kit MM ONE (13:23)
[2018-08-26] MEDS ORDERED: Neostigmine 1:1000 (1 mg/ml) Inj ONE ×2 (13:23→15:49)
[2018-08-26] MEDS ORDERED: Bupivacaine HCl 0.25% PF (30 ml) Inj ONE (13:27)
[2018-08-26] MEDS ORDERED: Sodium Chloride 0.9% 1,000 ML IV ONE (13:33)
[2018-08-26] MEDS ORDERED: Albuterol HFA 90 mcg/actuation (8 g) ONE (15:08)
[2018-08-26 15:10] LABS: FLUID TYPE SYNOVIAL FLUID
[2018-08-26] MEDS ORDERED: Dexamethasone 4 mg/1 ml ONE (15:11)
[2018-08-26] MEDS ORDERED: Sevoflurane - Inhalation Anesthetic Liq (250 ml) ONE (15:30)
--- NOTE | 2018-08-26 15:44 | PCM.ANESB1 ---
Interscalene Block - Brachial Plexus Date of Procedure: 08/26/18 Anesthesiologist: Malcolm Pond Pre-Procedure Diagnosis: R shoulder revision dislocation Post-Procedure Diagnosis: Same Procedure Performed: Interscalene Block of Brachial Plexus Right - Procedure Interscalene Block of Brachial Plexus: This procedure was explained to the patient that it is for post-operative pain m anagement. Consent was obtained after a thorough discussion with the patient regarding the benefits and possible complications of local anesthetic block of the Brachial Plexus at the Interscalene area. The patient was brought to the Operating Room and standard monitors were applied. Time out was held with the circulating nurse to confirm the correct surgery and appropriate block. After applying Oxygen by nasal cannula and administering IV Sedation, the patient's head was gently rotated away from the right operative shoulder and the anterior scalene groove was carefully palpated. The ultrasound transducer was then applied to the skin in the transverse plane and the brachial plexus was visualized lateral to the carotid artery and in between the anterior and middle scalene muscles. After identification,the anterior lateral portion of the neck was prepped with Betadine solution three times and Lidocaine 1% was injected subcutaneously for topical analgesia. At this point, a # 22 gauge Stimuplex 2 inches insulated needle was inserted into the interscalene groove and directed in a caudal and midline direction. The needle was inserted lateral to the ultrasound transducer in-plane towards the brachial plexus in a [id number] direction. Needle advancement was performed carefully under direct ultrasound visualization. After repeated negative aspiration, 30cc of 0.25% bupivacaine with [id number] epinephrine was injected in 5cc aliquots. Under ultrasound guidance the local anesthetics were observed surrounding the roots of the brachial plexus. The needle was removed intact and sterile dressing was applied. The patient had stable vital signs, was conscious and in no apparent distress. The patient tolerated the interscalene block of the bracheal plexus well with stable vital signs and was prepared for subsequent surgery.
[2018-08-26 16:09] LABS: SF GROSS APPEARANCE CLOUDY (CLEAR); SYNOVIAL FLUID COMMENT SLIGHTLY BLOODY; SYNOVIAL FLUID MONO/MACROPHAGE 20 % (0-0)
[2018-08-26] MEDS ORDERED: Labetalol 5mg/ml (4ml) ONE (16:12)
[2018-08-26] MEDS ORDERED: Sodium Chloride 0.9% 500 ML IV ONE (16:27)
[2018-08-26] MEDS ORDERED: HYDROmorphone 0.5 mg/0.5 ml ISec IVP PRN (16:30)
--- NOTE | 2018-08-26 16:52 | PCM.SURG1 ---
Surgeon's Initial Post Op Note - Surgeon's Notes Surgeon: Sarbjit Shrimper: /ROMAN Adrian/ 2nd assist Kashif Sierra Type of Anesthesia: General Endo, Block Regional Anesthesia Administered By: DR Portillo Rodrigues Pre-Operative Diagnosis: Dislocated R total shoulder replacement. loosened/dissociated glenosphere. fx glenoid Right shoulder Operative Findings: dislocated Right total shoulder replacement. loosened glenoid component. fracture glenoid Post-Operative Diagnosis: dislocated R total shouldetr replacement. dissociation/ loosened Right glenoid componenet/glenosphere. fracture right glenoid Operation Performed: complex revisison Right total shoulder replacement. orif glenoid fracture. removal failed dissociated dislocated total shoulder components. autograft/allogrfat bone graft Specimen/Specimens Removed: bone/ failed glenoid component/ humeral proximal component Estimated Blood Loss: EBL {In ML}: 45 Blood Products Given: N/A Drains Used: No Drains Post-Op Condition: Fair Date of Surgery/Procedure: 08/26/18 Time of Surgery/Procedure: 14:45 (time in room/anaesthesia indcution time 1333)
[2018-08-26] MEDS ORDERED: Oxycodone/Acetaminophen 5/325 mg Tab PO PRN ×2 (17:03)
[2018-08-26] MEDS ORDERED: Lactated Ringer's 1,000 ML IV SCH (17:15)
[2018-08-26] MEDS: Fluticasone-Salmeterol 250-50mcg Diskus INH SCH ×3 (17:28→22:38)
--- NOTE | 2018-08-26 19:00 | RAD ---
Indication: Postop Comparison: Right shoulder radiographs performed 07/22/18 Single portable view, right shoulder Findings: The patient is status post right shoulder total arthroplasty. Alignment cannot be adequately assessed in the absence of orthogonal views. Soft tissue swelling, subcutaneous emphysema, and surgical stella compatible with recent postoperative history. Impression: Status post right arthroplasty as above.
--- NOTE | 2018-08-26 21:06 | CP.PCM.CON ---
History of Present Illness - History of Present Illness History of Present Illness: THE PATIENT IS AN 83 YEAR OLD MALE WHO HAD A TOTAL RIGHT SHOULDER REPLACEMENT AND IT BECAME DISLOCATED AT IT WAS REVISED SUCCESSFULLY BY DR KANG LAST MONTH. IT BECAME DISLOCATED AGAIN AND IT WAS REVISED AGAIN TODAY BY DR KANG WHO ALSO FOUND A GLENOID FRACTURE THAT WAS REPAIRED. I WAS ASKED TO FOLLOW THIS PATIENT BY DR KANG. HE ALSO HAS A HISTORY OF CAD WITH 2 PRIOR CORONARY STENT INSERTIONS, AN AICD IMPLANTATION, ATRIAL FIBRILLATION IN THE PASR BUT CONVERTED BACK TO SINUS RHYTHM, HYPERTENSION, HYPERLIPIDEMIA, HYPOTHYROIDISM AND ASTHMA. I SAW HIM POST-OP IN HIS ICU ROOM AND HE FEELS GOOD AND DENIES CHEST PAIN, PALPI TATIONS OR SOB. Past Patient History - Past Medical History & Family History Past Medical History?: Yes - Past Social History Smoking Status: Never Smoked - CARDIAC Hx Cardiac Disorders: Yes Hx Cardia Arrhythmia: Yes (afib) Hx Hypercholesterolemia: Yes Hx Hypertension: Yes Hx Pacemaker: Yes Other/Comment: cardiac pacemaker stent LAD - PULMONARY Hx Respiratory Disorders: Yes Hx Asthma: Yes (allergic) - NEUROLOGICAL Hx Neurological Disorder: No - HEENT Hx HEENT Problems: No - RENAL Hx Chronic Kidney Disease: No - ENDOCRINE/METABOLIC Hx Endocrine Disorders: No - HEMATOLOGICAL/ONCOLOGICAL Hx Blood Disorders: No - INTEGUMENTARY Hx Dermatological Problems: No - MUSCULOSKELETAL/RHEUMATOLOGICAL Hx Musculoskeletal Disorders: Yes Hx Arthritis: Yes (shoulder) Hx Falls: No - GASTROINTESTINAL Hx Gastrointestinal Disorders: Yes Hx Gastritis: Yes - GENITOURINARY/GYNECOLOGICAL Hx Genitourinary Disorders: No - PSYCHIATRIC Hx Psychophysiologic Disorder: No Hx Substance Use: No - SURGICAL HISTORY Hx Surgeries: Yes Hx Angioplasty: Yes (PTCA) Hx Arthroscopy: Yes (L shoulder) Hx Cataract Extraction: Yes Hx Coronary Stent: Yes (LAD) Hx Joint Replacement: Yes (Left TSA approx 2012, Right TSA approx 2014) - ANESTHESIA Hx Anesthesia: Yes Hx Anesthesia Reactions: No Has any member of the family had a problem w/ anesthesia?: No Meds Allergies/Adverse Reactions: Allergies Allergy/AdvReac Type Severity Reaction Status Date / Time No Known Allergies Allergy Verified 08/26/18 08:15 - Medications Medications: Current Medications Acetaminophen (Tylenol 325mg Tab) 650 mg PO Q4 PRN PRN Reason: Fever 101 degrees fahrenheit Albuterol (Ventolin Hfa 90 Mcg/Actuation (8 G)) 1 puff IH RQID [facility] Atorvastatin Calcium (Lipitor) 40 mg PO HS [facility] Docusate Sodium (Colace) 100 mg PO BID [facility] Last Admin: 08/26/18 20:55 Dose: 100 mg Hydromorphone HCl (Dilaudid) 0.5 mg IVP Q5M PRN PRN Reason: Pain, moderate (4-7) Last Admin: 08/26/18 18:10 Dose: 0.5 mg Cefazolin Sodium/Dextrose (Ancef Iv 1 Gm Duplex) 1 gm in 50 mls @ 50 mls/hr IVPB Q8 [facility]; Protocol Stop: 08/27/18 09:59 Lactated Ringer's (Lactated Ringer's) 1,000 mls @ 100 mls/hr IV .Q10H [facility] Last Admin: 08/26/18 20:52 Dose: 100 mls/hr Montelukast Sodium (Singulair) 10 mg PO QPM [facility] Last Admin: 08/26/18 20:55 Dose: 10 mg Morphine Sulfate (Morphine) 2 mg IVP Q4 PRN PRN Reason: Pain, severe (8-10) Last Admin: 08/26/18 20:47 Dose: 2 mg Ondansetron HCl (Zofran Inj) 4 mg IVP ONCE PRN PRN Reason: Nausea/Vomiting Oxycodone/Acetaminophen (Percocet 5/325 Mg Tab) 1 tab PO Q4 PRN PRN Reason: Pain, Mild (1-3) Stop: 08/29/18 17:04 Oxycodone/Acetaminophen (Percocet 5/325 Mg Tab) 2 tab PO Q4 PRN PRN Reason: Pain, moderate (4-7) Stop: 08/29/18 17:04 Fluticasone/Salmeterol (Advair Diskus 250/50) 1 puff INH RBID [facility] Last Admin: 08/26/18 17:28 Dose: 1 puff Theophylline (Francisco-24) 100 mg PO DAILY [facility] Physical Exam - Respiratory Exam Respiratory Exam: Clear to Auscultation Bilateral - Cardiovascular Exam Cardiovascular Exam: REGULAR RHYTHM, +S1, +S2 - Extremities Exam Additional comments: NO LE EDEMA - Additional Findings Additional findings: RN CAMP NSR DR KANG'S OPERATIVE REPORT REVIEWED Results - Vital Signs Recent Vital Signs: Last Vital Signs Temp 96.9 F L 08/26/18 18:57 Pulse 67 08/26/18 18:57 Resp 14 08/26/18 18:57 BP 134/69 08/26/18 18:57 Pulse Ox 96 08/26/18 18:57 - Labs Result Diagrams: 08/26/18 10:03 08/26/18 07:10 Labs: Laboratory Results - last 24 hr 08/26/18 08/26/18 08/26/18 07:10 07:10 08:34 WBC RBC Hgb Hct MCV MCH MCHC RDW Plt Count MPV Neut % (Auto) Lymph % (Auto) [place] % (Auto) Eos % (Auto) Baso % (Auto) Neut # (Auto) Lymph # (Auto) [place] # (Auto) Eos # (Auto) Baso # (Auto) PT 11.7 INR 1.0 APTT 29.9 Sodium 141 Potassium 4.9 Chloride 109 H Carbon Dioxide 26 Anion Gap 11 BUN 28 H Creatinine 1.3 Est GFR ( Amer) > 60 Est GFR (Non-Af Amer) 53 Random Glucose 106 Calcium 9.4 Urine Color Urine Clarity Urine pH Ur Specific [place] Urine Protein Urine Glucose (UA) Urine Ketones Urine Blood Urine Nitrate Urine Bilirubin Urine Urobilinogen Ur Leukocyte Esterase Urine RBC (Auto) Urine Microscopic WBC Hyaline Casts Fluid Type Synovial WBC Synovial RBC Synovial Neutrophils Synovial Lymphocytes Synov Monos/Macrophage Synovial Fluid Comment Blood Type A POSITIVE Antibody Screen Negative Crossmatch See Detail BBK History Checked Patient has bt 08/26/18 08/26/18 08/26/18 08:40 10:03 14:57 WBC 6.5 RBC 4.45 Hgb 12.6 D Hct 39.9 MCV 89.7 MCH 28.4 MCHC 31.7 L RDW 15.4 H Plt Count 244 MPV 9.5 Neut % (Auto) 65.1 Lymph % (Auto) 20.9 [place] % (Auto) 7.2 Eos % (Auto) 5.5 H Baso % (Auto) 1.3 Neut # (Auto) 4.2 Lymph # (Auto) 1.4 [place] # (Auto) 0.5 Eos # (Auto) 0.4 Baso # (Auto) 0.1 PT INR APTT Sodium Potassium Chloride Carbon Dioxide Anion Gap BUN Creatinine Est GFR ( Amer) Est GFR (Non-Af Amer) Random Glucose Calcium Urine Color Yellow Urine Clarity Slighty-cloudy Urine pH 6.0 Ur Specific [place] 1.017 Urine Protein Negative Urine Glucose (UA) Neg Urine Ketones Negative Urine Blood Negative Urine Nitrate Negative Urine Bilirubin Negative Urine Urobilinogen 2.0 Ur Leukocyte Esterase Neg Urine RBC (Auto) 2 Urine Microscopic WBC 1 Hyaline Casts 6-10 H Fluid Type Synovial fluid Synovial WBC 176.0 H Synovial RBC 50564.0 H Synovial Neutrophils 57.0 H Synovial Lymphocytes 23.0 H Synov Monos/Macrophage 20 H Synovial Fluid Comment Slightly bloody Blood Type Antibody Screen Crossmatch BBK History Checked Assessment & Plan - Assessment and Plan (Free Text) Assessment: RIGHT TOTAL SHOULDER REVISION AND REPAIR OF GLENOID FRACTURE CAD HISTORY-STABLE HISTORY OF ATRIAL FIBRILLATION-NOW IN NSR HYPERTENSION HYPERLIPIDEMIA Plan: CONTINUE ATORVASTATIN, IV ANTIBIOTICS AND COPD MEDS AMLODIPINE CAN BE RESTARTED IN THE AM IF HIS BLOOD PRESSURE IS STABLE PRADAXA CAN BE RESTARTED WHEN OK WITH ORTHOPEDICS
[2018-08-26] MEDS: Albuterol HFA 90 mcg/actuation (8 g) IH SCH (22:36)
[2018-08-27] MEDS: ceFAZolin IV 1 gm in Dextrose 1 GM/50 ML BAG IVPB SCH ×2 (00:20→10:20)
[2018-08-27 06:08] LABS: MEAN CELL VOLUME 88.2 fl (80.0-94.0); MEAN CORPUSCULAR HEMOGLOBIN 28.6 pg (27.0-31.0); MEAN CORPUSCULAR HGB CONC 32.4 g/dL (33.0-37.0); RBC 4.18 Mil/uL (4.40-5.90); RED CELL DISTRIBUTION WIDTH 15.8 % (11.5-14.5); WHITE BLOOD COUNT 8.3 K/uL (4.8-10.8)
[2018-08-27 06:23] LABS: CALCIUM 9.1 mg/dL (8.4-10.2)
[2018-08-27 08:20] VITALS: TEMP 98.6
[2018-08-27] MEDS ORDERED: Theophylline 100mg ER 24 hrs Cap PO SCH (09:00)
[2018-08-27] MEDS ORDERED: Enoxaparin 40 mg Syringe SC SCH (09:00)
--- NOTE | 2018-08-27 09:06 | CP.PCM.PN ---
Subjective - Date & Time of Evaluation Date of Evaluation: 08/27/18 Time of Evaluation: 09:04 - Subjective Subjective: Patient states pain in arm in controlled. Denies CP/SOB/dizziness/numbness/tingling. Objective - Vital Signs/Intake and Output Vital Signs (last 24 hours): Temp Pulse Resp BP Pulse Ox 98.6 F 65 7 L 148/80 93 L 08/27/18 08:00 08/27/18 08:00 08/27/18 08:00 08/27/18 08:00 08/27/18 08:00 Intake and Output: 08/27/18 08/27/18 06:59 18:59 Intake Total 130 Balance 130 - Medications Medications: Current Medications Acetaminophen (Tylenol 325mg Tab) 650 mg PO Q4 PRN PRN Reason: Fever 101 degrees fahrenheit Albuterol (Ventolin Hfa 90 Mcg/Actuation (8 G)) 1 puff IH RQID [facility] Last Admin: 08/26/18 22:36 Dose: 1 puff Atorvastatin Calcium (Lipitor) 40 mg PO HS [facility] Last Admin: 08/26/18 22:36 Dose: 40 mg Docusate Sodium (Colace) 100 mg PO BID [facility] Last Admin: 08/26/18 20:55 Dose: 100 mg Enoxaparin Sodium (Lovenox) 40 mg SC DAILY [facility]; Protocol Hydromorphone HCl (Dilaudid) 0.5 mg IVP Q5M PRN PRN Reason: Pain, moderate (4-7) Last Admin: 08/26/18 18:10 Dose: 0.5 mg Cefazolin Sodium/Dextrose (Ancef Iv 1 Gm Duplex) 1 gm in 50 mls @ 50 mls/hr IVPB Q8 [facility]; Protocol Stop: 08/27/18 09:59 Last Admin: 08/27/18 00:20 Dose: 50 mls/hr Lactated Ringer's (Lactated Ringer's) 1,000 mls @ 100 mls/hr IV .Q10H [facility] Last Admin: 08/26/18 20:52 Dose: 100 mls/hr Montelukast Sodium (Singulair) 10 mg PO QPM [facility] Last Admin: 08/26/18 20:55 Dose: 10 mg Morphine Sulfate (Morphine) 2 mg IVP Q4 PRN PRN Reason: Pain, severe (8-10) Last Admin: 08/26/18 20:47 Dose: 2 mg Ondansetron HCl (Zofran Inj) 4 mg IVP ONCE PRN PRN Reason: Nausea/Vomiting Oxycodone/Acetaminophen (Percocet 5/325 Mg Tab) 1 tab PO Q4 PRN PRN Reason: Pain, Mild (1-3) Stop: 08/29/18 17:04 Oxycodone/Acetaminophen (Percocet 5/325 Mg Tab) 2 tab PO Q4 PRN PRN Reason: Pain, moderate (4-7) Stop: 08/29/18 17:04 Fluticasone/Salmeterol (Advair Diskus 250/50) 1 puff INH RBID [facility] Last Admin: 08/26/18 21:00 Dose: 1 puff Theophylline (Francisco-24) 100 mg PO DAILY [facility] - Labs Labs: 08/27/18 04:50 08/27/18 04:50 PT 11.7 Seconds (9.8-13.1) 08/26/18 08:34 INR 1.0 08/26/18 08:34 APTT 29.9 Seconds (25.6-37.1) 08/26/18 08:34 - Extremities Exam Additional comments: Right arm: incision dressingn intact, no visible drainage. +ROM fingers add/abd/flex/ext, wrist flex/ext, sensation itnact to rad/med/ulnar nerves +radial pulse Assessment and Plan (1) Dislocation of prosthetic shoulder joint Assessment & Plan: POD#1 s/p right shoulder reverse TSA revision, ORIF glenoid orthopedically stable for d/c home PT/OT may restart pradaxa tomorrow am maintain shoulder immobilizer at all times dressing to be removed in 3 days and dry sterile dressing applied f/u 7-[address] Schaffer call for appointment d/w Dr. Schaffer agrees with above Status: Acute (2) Fracture of glenoid process of right scapula Status: Acute
--- NOTE | 2018-08-27 10:17 | CP.PCM.PN ---
Subjective - Date & Time of Evaluation Date of Evaluation: 08/27/18 Time of Evaluation: 09:00 - Subjective Subjective: NO CHEST PAIN Objective - Vital Signs/Intake and Output Vital Signs (last 24 hours): Temp Pulse Resp BP Pulse Ox 98.6 F 65 7 L 148/80 93 L 08/27/18 08:00 08/27/18 08:00 08/27/18 08:00 08/27/18 08:00 08/27/18 08:00 Intake and Output: 08/27/18 08/27/18 06:59 18:59 Intake Total 130 Balance 130 - Medications Medications: Current Medications Acetaminophen (Tylenol 325mg Tab) 650 mg PO Q4 PRN PRN Reason: Fever 101 degrees fahrenheit Albuterol (Ventolin Hfa 90 Mcg/Actuation (8 G)) 1 puff IH RQID [facility] Last Admin: 08/26/18 22:36 Dose: 1 puff Atorvastatin Calcium (Lipitor) 40 mg PO HS [facility] Last Admin: 08/26/18 22:36 Dose: 40 mg Docusate Sodium (Colace) 100 mg PO BID [facility] Last Admin: 08/26/18 20:55 Dose: 100 mg Enoxaparin Sodium (Lovenox) 40 mg SC DAILY [facility]; Protocol Hydromorphone HCl (Dilaudid) 0.5 mg IVP Q5M PRN PRN Reason: Pain, moderate (4-7) Last Admin: 08/26/18 18:10 Dose: 0.5 mg Lactated Ringer's (Lactated Ringer's) 1,000 mls @ 100 mls/hr IV .Q10H [facility] Last Admin: 08/26/18 20:52 Dose: 100 mls/hr Montelukast Sodium (Singulair) 10 mg PO QPM [facility] Last Admin: 08/26/18 20:55 Dose: 10 mg Morphine Sulfate (Morphine) 2 mg IVP Q4 PRN PRN Reason: Pain, severe (8-10) Last Admin: 08/26/18 20:47 Dose: 2 mg Ondansetron HCl (Zofran Inj) 4 mg IVP ONCE PRN PRN Reason: Nausea/Vomiting Oxycodone/Acetaminophen (Percocet 5/325 Mg Tab) 1 tab PO Q4 PRN PRN Reason: Pain, Mild (1-3) Stop: 08/29/18 17:04 Oxycodone/Acetaminophen (Percocet 5/325 Mg Tab) 2 tab PO Q4 PRN PRN Reason: Pain, moderate (4-7) Stop: 08/29/18 17:04 Fluticasone/Salmeterol (Advair Diskus 250/50) 1 puff INH RBID [facility] Last Admin: 08/26/18 21:00 Dose: 1 puff Theophylline (Francisco-24) 100 mg PO DAILY [facility] - Labs Labs: 08/27/18 04:50 08/27/18 04:50 PT 11.7 Seconds (9.8-13.1) 08/26/18 08:34 INR 1.0 08/26/18 08:34 APTT 29.9 Seconds (25.6-37.1) 08/26/18 08:34 - Respiratory Exam Respiratory Exam: Clear to Ausculation Bilateral - Cardiovascular Exam Cardiovascular Exam: REGULAR RHYTHM, +S1, +S2 - Extremities Exam Additional comments: NO LE EDEMA RUE IN A SLING - Additional Findings 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
[2018-08-27] MEDS: Fluticasone-Salmeterol 250-50mcg Diskus INH SCH (10:20)
[2018-08-27] MEDS: Albuterol HFA 90 mcg/actuation (8 g) IH SCH ×2 (10:23→12:52)
[2018-08-27 12:15] VITALS: O2SAT 95
--- NOTE | 2018-08-27 13:04 | CP.PCM.DIS ---
<Ruben Stevens - Last Filed: 08/27/18 13:02> Provider - Provider Date of Admission: 08/26/18 16:46 Attending physician: Isa Guerrero MD Primary care physician: Daniel Schaffer III, MD Consults: 08/26/18 11:02 Orthopedic Consult Routine Comment: Consulting Provider: Daniel Schaffer III Consulting Physician: Daniel Schaffer III Reason for Consult: Right Shoulder Pain, Hx of Revision shoulder replacement 08/26/18 17:03 Case Management Referral Routine Comment: Physician Instructions: Reason For Exam: Reason for Referral: Discharge Planning 08/26/18 17:07 Physician Consult Routine Comment: Consulting Provider: Jameson Zurita Consulting Physician: Jameson Zurita Reason for Consult: postop cardiac mgmt Time Spent in preparation of Discharge (in minutes): 20 Hospital Course - Lab Results Lab Results: Micro Results 08/26/18 14:57 Body Fluid - Shoulder-Right Gram Stain - Final Most Recent Lab Values WBC 8.3 K/uL (4.8-10.8) 08/27/18 04:50 RBC 4.18 Mil/uL (4.40-5.90) L 08/27/18 04:50 Hgb 12.0 g/dL (12.0-18.0) 08/27/18 04:50 Hct 36.9 % (35.0-51.0) 08/27/18 04:50 MCV 88.2 fl (80.0-94.0) 08/27/18 04:50 MCH 28.6 pg (27.0-31.0) 08/27/18 04:50 MCHC 32.4 g/dL (33.0-37.0) L 08/27/18 04:50 RDW 15.8 % (11.5-14.5) H 08/27/18 04:50 Plt Count 228 K/uL (130-400) 08/27/18 04:50 MPV 9.5 fl (7.2-11.7) 08/26/18 10:03 Neut % (Auto) 65.1 % (50.0-75.0) 08/26/18 10:03 Lymph % (Auto) 20.9 % (20.0-40.0) 08/26/18 10:03 [place] % (Auto) 7.2 % (0.0-10.0) 08/26/18 10:03 Eos % (Auto) 5.5 % (0.0-4.0) H 08/26/18 10:03 Baso % (Auto) 1.3 % (0.0-2.0) 08/26/18 10:03 Neut # (Auto) 4.2 K/uL (1.8-7.0) 08/26/18 10:03 Lymph # (Auto) 1.4 K/uL (1.0-4.3) 08/26/18 10:03 [place] # (Auto) 0.5 K/uL (0.0-0.8) 08/26/18 10:03 Eos # (Auto) 0.4 K/uL (0.0-0.7) 08/26/18 10:03 Baso # (Auto) 0.1 K/uL (0.0-0.2) 08/26/18 10:03 PT 11.7 Seconds (9.8-13.1) 08/26/18 08:34 INR 1.0 08/26/18 08:34 APTT 29.9 Seconds (25.6-37.1) 08/26/18 08:34 Sodium 138 mmol/l (132-148) 08/27/18 04:50 Potassium 5.2 MMOL/L (3.6-5.0) H 08/27/18 04:50 Chloride 107 mmol/L (98-107) 08/27/18 04:50 Carbon Dioxide 24 mmol/L (22-30) 08/27/18 04:50 Anion Gap 12 (10-20) 08/27/18 04:50 BUN 28 mg/dl (9-20) H 08/27/18 04:50 Creatinine 1.4 mg/dl (0.8-1.5) 08/27/18 04:50 Est GFR ( Amer) 59 08/27/18 04:50 Est GFR (Non-Af Amer) 48 08/27/18 04:50 Random Glucose 154 mg/dL (75-110) H 08/27/18 04:50 Calcium 9.1 mg/dL (8.4-10.2) 08/27/18 04:50 Triglycerides 90 mg/DL (0-149) 08/27/18 04:50 Cholesterol 194 mg/dL (0-199) 08/27/18 04:50 LDL Cholesterol Direct 137 mg/dL (0-129) H 08/27/18 04:50 HDL Cholesterol 46 MG/DL (30-70) 08/27/18 04:50 TSH 3rd Generation 0.41 mIU/ML (0.46-4.68) L 08/27/18 04:50 Urine Color Yellow (YELLOW) 08/26/18 08:40 Urine Clarity Slighty-cloudy (Clear) 08/26/18 08:40 Urine pH 6.0 (5.0-8.0) 08/26/18 08:40 Ur Specific Labadie 1.017 (1.003-1.030) 08/26/18 08:40 Urine Protein Negative mg/dL (NEGATIVE) 08/26/18 08:40 Urine Glucose (UA) Neg mg/dL (Normal) 08/26/18 08:40 Urine Ketones Negative mg/dL (NEGATIVE) 08/26/18 08:40 Urine Blood Negative (NEGATIVE) 08/26/18 08:40 Urine Nitrate Negative (NEGATIVE) 08/26/18 08:40 Urine Bilirubin Negative (NEGATIVE) 08/26/18 08:40 Urine Urobilinogen 2.0 mg/dL (0.2-1.0) 08/26/18 08:40 Ur Leukocyte Esterase Neg Mitra/uL (Negative) 08/26/18 08:40 Urine RBC (Auto) 2 /hpf (0-3) 08/26/18 08:40 Urine Microscopic WBC 1 /hpf (0-5) 08/26/18 08:40 Hyaline Casts 6-10 /hpf (0-2) H 08/26/18 08:40 Fluid Type Synovial fluid 08/26/18 14:57 Synovial WBC 176.0 /mm3 (0.0-150.0) H 08/26/18 14:57 Synovial RBC 12684.0 /mm3 (0.0-0.0) H 08/26/18 14:57 Synovial Neutrophils 57.0 % (0-0) H 08/26/18 14:57 Synovial Lymphocytes 23.0 % (0-0) H 08/26/18 14:57 Synov Monos/Macrophage 20 % (0-0) H 08/26/18 14:57 Synovial Fluid Comment Slightly bloody 08/26/18 14:57 Blood Type A POSITIVE 08/26/18 07:10 Antibody Screen Negative 08/26/18 07:10 Crossmatch See Detail 08/26/18 07:10 BBK History Checked Patient has bt 08/26/18 07:10 - Hospital Course Hospital Course: 83 yo male with PMH of HTN, HLD, CAD with pacemaker and Afib (hypothyriodism present today for shoulder surgery by Dr. Schaffer. s/p right shoulder reverse TSA revision, ORIF glenoid day 1. Surgery was done by Dr. Schaffer with no complication. Pt was arausable, and sent to ICU for overnight monitoring. Pt was seen and examined today. Pt had no complain and want to be discharged home. Pt was able to pass urine with no difficulty. PT/OT have seen patient and cleared him. Pt Physical exam WNL, Right arm incision dressing intact, no visible drain, +ROM and intact sensation with + radial pulse. Patient chart reviewed, Vitals wnl. Pt is stable to be discharged home and follow up with Dr. Isaacs synthroid medication was adjusted to .50mcg daily Follow up with PCP in 1-2 day Follow up with Dr. Isaacs in 1 week. Discharge Exam - Head Exam Head Exam: ATRAUMATIC, NORMOCEPHALIC - Eye Exam Eye Exam: EOMI, Normal appearance, PERRL Pupil Exam: NORMAL ACCOMODATION, PERRL - Respiratory Exam Respiratory Exam: Clear to PA & Lateral, NORMAL BREATHING PATTERN, UNREMARKABLE - Cardiovascular Exam Cardiovascular Exam: REGULAR RHYTHM, +S1, +S2 - GI/Abdominal Exam GI & Abdominal Exam: Normal Bowel Sounds, Unremarkable - Extremities Exam Additional comments: Right arm incision dressing intact, no visible drain, +ROM and intact sensation with + radial pulse. OTher WNl - Back Exam Back exam: NORMAL INSPECTION - Neurological Exam Neurological exam: Alert, Oriented x3 - Psychiatric Exam Psychiatric exam: Normal Affect, Normal Mood - Skin Skin Exam: Dry, Intact, Normal Color, Warm Discharge Plan - Discharge Medications Prescriptions: amLODIPine [Norvasc] 5 mg PO DAILY #30 tab Levothyroxine Sodium [Levo-T] 50 mcg PO DAILY #30 tablet - Follow Up Plan Condition: GOOD Disposition: HOME/ ROUTINE Instructions: Shoulder Fracture Additional Instructions: ff up with Dr Schaffer in 1 wk keep Shoulder immobilizer on at all times Remove dressing in 3 days and apply clean, dry dressing Referrals: Daniel Schaffer III, MD [Primary Care Provider] - <Isa Guerrero - Last Filed: 08/27/18 16:05> Provider - Provider Date of Admission: 08/26/18 16:46 Attending physician: Isa Guerrero MD Primary care physician: Daniel Schaffer III, MD Consults: 08/26/18 11:02 Orthopedic Consult Routine Comment: Consulting Provider: Daniel Schaffer III Consulting Physician: Daniel Schaffer III Reason for Consult: Right Shoulder Pain, Hx of Revision shoulder replacement 08/26/18 17:03 Case Management Referral Routine Comment: Physician Instructions: Reason For Exam: Reason for Referral: Discharge Planning 08/26/18 17:07 Physician Consult Routine Comment: Consulting Provider: Jameson Zurita Consulting Physician: Jameson Zurita Reason for Consult: postop cardiac mgmt Hospital Course - Lab Results Lab Results: Micro Results 08/26/18 14:22 Shoulder - Right Gram Stain - Final 08/26/18 14:57 Body Fluid - Shoulder-Right Gram Stain - Final Most Recent Lab Values WBC 8.3 K/uL (4.8-10.8) 08/27/18 04:50 RBC 4.18 Mil/uL (4.40-5.90) L 08/27/18 04:50 Hgb 12.0 g/dL (12.0-18.0) 08/27/18 04:50 Hct 36.9 % (35.0-51.0) 08/27/18 04:50 MCV 88.2 fl (80.0-94.0) 08/27/18 04:50 MCH 28.6 pg (27.0-31.0) 08/27/18 04:50 MCHC 32.4 g/dL (33.0-37.0) L 08/27/18 04:50 RDW 15.8 % (11.5-14.5) H 08/27/18 04:50 Plt Count 228 K/uL (130-400) 08/27/18 04:50 MPV 9.5 fl (7.2-11.7) 08/26/18 10:03 Neut % (Auto) 65.1 % (50.0-75.0) 08/26/18 10:03 Lymph % (Auto) 20.9 % (20.0-40.0) 08/26/18 10:03 [place] % (Auto) 7.2 % (0.0-10.0) 08/26/18 10:03 Eos % (Auto) 5.5 % (0.0-4.0) H 08/26/18 10:03 Baso % (Auto) 1.3 % (0.0-2.0) 08/26/18 10:03 Neut # (Auto) 4.2 K/uL (1.8-7.0) 08/26/18 10:03 Lymph # (Auto) 1.4 K/uL (1.0-4.3) 08/26/18 10:03 [place] # (Auto) 0.5 K/uL (0.0-0.8) 08/26/18 10:03 Eos # (Auto) 0.4 K/uL (0.0-0.7) 08/26/18 10:03 Baso # (Auto) 0.1 K/uL (0.0-0.2) 08/26/18 10:03 PT 11.7 Seconds (9.8-13.1) 08/26/18 08:34 INR 1.0 08/26/18 08:34 APTT 29.9 Seconds (25.6-37.1) 08/26/18 08:34 Sodium 138 mmol/l (132-148) 08/27/18 04:50 Potassium 5.2 MMOL/L (3.6-5.0) H 08/27/18 04:50 Chloride 107 mmol/L (98-107) 08/27/18 04:50 Carbon Dioxide 24 mmol/L (22-30) 08/27/18 04:50 Anion Gap 12 (10-20) 08/27/18 04:50 BUN 28 mg/dl (9-20) H 08/27/18 04:50 Creatinine 1.4 mg/dl (0.8-1.5) 08/27/18 04:50 Est GFR ( Amer) 59 08/27/18 04:50 Est GFR (Non-Af Amer) 48 08/27/18 04:50 Random Glucose 154 mg/dL (75-110) H 08/27/18 04:50 Calcium 9.1 mg/dL (8.4-10.2) 08/27/18 04:50 Triglycerides 90 mg/DL (0-149) 08/27/18 04:50 Cholesterol 194 mg/dL (0-199) 08/27/18 04:50 LDL Cholesterol Direct 137 mg/dL (0-129) H 08/27/18 04:50 HDL Cholesterol 46 MG/DL (30-70) 08/27/18 04:50 TSH 3rd Generation 0.41 mIU/ML (0.46-4.68) L 08/27/18 04:50 Urine Color Yellow (YELLOW) 08/26/18 08:40 Urine Clarity Slighty-cloudy (Clear) 08/26/18 08:40 Urine pH 6.0 (5.0-8.0) 08/26/18 08:40 Ur Specific [place] 1.017 (1.003-1.030) 08/26/18 08:40 Urine Protein Negative mg/dL (NEGATIVE) 08/26/18 08:40 Urine Glucose (UA) Neg mg/dL (Normal) 08/26/18 08:40 Urine Ketones Negative mg/dL (NEGATIVE) 08/26/18 08:40 Urine Blood Negative (NEGATIVE) 08/26/18 08:40 Urine Nitrate Negative (NEGATIVE) 08/26/18 08:40 Urine Bilirubin Negative (NEGATIVE) 08/26/18 08:40 Urine Urobilinogen 2.0 mg/dL (0.2-1.0) 08/26/18 08:40 Ur Leukocyte Esterase Neg Mitra/uL (Negative) 08/26/18 08:40 Urine RBC (Auto) 2 /hpf (0-3) 08/26/18 08:40 Urine Microscopic WBC 1 /hpf (0-5) 08/26/18 08:40 Hyaline Casts 6-10 /hpf (0-2) H 08/26/18 08:40 Fluid Type Synovial fluid 08/26/18 14:57 Synovial WBC 176.0 /mm3 (0.0-150.0) H 08/26/18 14:57 Synovial RBC 98185.0 /mm3 (0.0-0.0) H 08/26/18 14:57 Synovial Neutrophils 57.0 % (0-0) H 08/26/18 14:57 Synovial Lymphocytes 23.0 % (0-0) H 08/26/18 14:57 Synov Monos/Macrophage 20 % (0-0) H 08/26/18 14:57 Synovial Fluid Comment Slightly bloody 08/26/18 14:57 Blood Type A POSITIVE 08/26/18 07:10 Antibody Screen Negative 08/26/18 07:10 Crossmatch See Detail 08/26/18 07:10 BBK History Checked Patient has bt 08/26/18 07:10 Attending/Attestation - Attestation I have personally seen and examined this patient.: Yes I have fully participated in the care of the patient.: Yes I have reviewed all pertinent clinical information, including history, physical exam and plan: Yes Notes (Text): (1) Dislocation of prosthetic shoulder joint (2) Fracture of glenoid process of right scapula s/p right shoulder reverse TSA revision, ORIF glenoid maintain shoulder immobilizer at all times dressing to be removed in 3 days and dry sterile dressing applied ff up with Dr Schaffer in 1 wk 3. Chronic A Fib, rate controlled May restart Pradaxa tomorrow as per Ortho ff up with PMD black 4. Hypothyroidism - TSH low - decrease Levothyroxine to 50mcg daily - Rx sent [facility]
[2018-08-27 14:34] VITALS: BP 135/89; PULSE 62; RESP 17
--- NOTE | 2018-08-28 10:44 | OP ---
PROCEDURE DATE: 08/26/2018 TIME OF SURGERY: 14:45. TIME IN THE ROOM: Anesthesia induction time: 13:33 PREOPERATIVE DIAGNOSES: 1. Dislocated right total shoulder replacement. 2. Loosened dissociated glenosphere. 3. Fracture of the right shoulder glenoid. POSTOPERATIVE DIAGNOSES: 1. Dislocated right total shoulder replacement. 2. Dissociation of loosening right glenoid component/glenosphere. 3. Fracture, right glenoid. SURGEON: Daniel Schaffer MD CENTRAL OFFICE MECHANIC: ILSA Woodson, certified registered nursing expanded function dental assistant SECOND HOTEL MAINTENANCE ENGINEER: MADISYN Abraham. ANESTHESIA: General endotracheal anesthesia. ANESTHESIOLOGIST: Portillo Rodrigues MD OPERATIVE FINDINGS: 1. Dislocated right total shoulder replacement. 2. Loosened glenoid component with dissociation from the glenoid. 3. Fracture of the glenoid. OPERATIONS PERFORMED: 1. Complex revision of right total shoulder replacement. 2. Open reduction internal fixation, glenoid fracture. 3. Primary repair, rotator cuff. 4. Removal of failed and dissociated total shoulder components. 5. Autograft, allograft bone grafts. SPECIMENS REMOVED: Bone, failed glenoid component, humeral proximal component. BLOOD LOSS: 45 mL. BLOOD PRODUCTS GIVEN: None. DRAINS USED: None. POSTOPERATIVE CONDITION: Fair. OPERATIVE INDICATION: David Monge is an 83-year-old gentleman who had undergone a previous revision total shoulder replacement. The patient had a questionable history of a recurrent trauma. The patient presented to my office with a dislocated, dissociated right shoulder replacement arthroplasty. Pros, cons, risks and benefits of surgical approach were discussed. The possibility of mechanical failure, infection, thromboembolic disease, possibility of secondary, tertiary surgery is discussed. The patient can no longer withstand the discomfort and wished the surgery to be accomplished. OPERATIVE PROCEDURE: After having obtained informed consent, after having identified the side, site and procedure and critical pause/timeout, after the satisfactory induction of the anesthetic, the patient identified as David Monge in the modified clemente chair position, the right upper extremity was prepped and free draped in the usual fashion for upper extremity surgery. The upper extremity shoulder positioner was employed. The right upper extremity was prepped and draped in the usual fashion for upper extremity surgery. The topographic anatomy of the shoulder was marked, spine of scapula, lateral aspect of the acromion, coracoid process. This having been accomplished, an ellipse of skin was outlined two fingerbreadths proximal to the original incision, two fingerbreadths distally. Skin incision was carried down through the skin and subcutaneous tissue. An ellipse of skin was removed. The deltopectoral interval was identified with external rotation of the shoulder, the deltopectoral interval was developed. The modified retractor was placed and at this point in time, the rotator cuff repair was carefully divided and the humeral component was identified with external rotation and deliverance into the field. This having been accomplished, the proximal aspect of the humeral component was dissociated. The baseplate and the polyethylene, this having been accomplished, this was removed. The humeral component was reflected out of the way and the glenosphere and glenoid component were removed. This having been accomplished, the glenoid was identified and this having been accomplished, there was found to be evidence of a fracture of a portion of the glenoid. This having been accomplished, exposure was accomplished, the rotator cuff was tagged and at this point in time, some burning was accomplished to remove some necrotic and fractured bone. At this point in time, the reamer was employed, the guide pin was introduced. Reaming was accomplished and at this point in time, the smaller glenosphere was used and elevated superiorly so as not to depend on the fracture for fixation. Fixation of the fracture was accomplished with placement of the glenoid component. Appropriate reaming was accomplished. The external glenoid component was identified, this was impacted, screws were placed superiorly and inferiorly and the glenoid was impacted. This having been accomplished, the glenoid having been impacted, screws having been placed, the glenosphere was introduced at 40 mm and this having been accomplished, the humeral side was reconstructed and the appropriate size plate was employed with the appropriate size poly trialing accomplished and found to be stable in all planes. At this point in time, the humeral component and the glenoid components having been removed from the glenohumeral joint, attention was turned to the glenoid. Reaming was accomplished, the glenoid component was introduced superiorly and inferiorly with interrupted screws and this having been accomplished with the glenoid component impacted and fixed, the open reduction internal fixation of the fracture was accomplished. It should be noted that autograft and allograft bone grafting was accomplished and this was important in the fixation of the glenoid. This having been accomplished, attention was turned to the humerus and the plate and polyethylene employed. The shoulder was reduced and found to be stable in all planes. At this point in time, the glenoid having been introduced, the humeral component having been introduced with the polyethylene component, the definitive glenoid humeral plate was employed with the appropriate polyethylene. This having been accomplished, the shoulder was reduced, rotator cuff was repaired and this having been accomplished, the wound was thoroughly irrigated. Closures in layers with 0 Quill, interrupted Vicryl, stella for skin. Compression dressing and shoulder abduction splint was applied. Daniel Schaffer MD
== END 2018-08-27 15:19 | disposition home or self-care (01) | DRG 483 ==
LOC: H.OPSURG 06:41 → H.ICU/CCU 16:46
PROVIDERS: ADMIT Internal Medicine; ATTEND Internal Medicine
PROC: 0PS704Z Reposition Right Glenoid Cavity with Internal Fixation Device, Open Approach (ICD-10-PCS; 2018-08-26)
PROC: 3E0T3BZ Introduction of Anesthetic Agent into Peripheral Nerves and Plexi, Percutaneous Approach (ICD-10-PCS; 2018-08-26)
PROC: 3E0T33Z Introduction of Anti-inflammatory into Peripheral Nerves and Plexi, Percutaneous Approach (ICD-10-PCS; 2018-08-26)
PROC: 0RRJ0JZ Replacement of Right Shoulder Joint with Synthetic Substitute, Open Approach (ICD-10-PCS; principal; 2018-08-26 13:15)
PROC: 0RPJ0JZ Removal of Synthetic Substitute from Right Shoulder Joint, Open Approach (ICD-10-PCS; 2018-08-26 13:15)
PROC: F07Z9FZ Gait Training/Functional Ambulation Treatment using Assistive, Adaptive, Supportive or Protective Equipment (ICD-10-PCS; 2018-08-27)
DX: T84.028A Dislocation of other internal joint prosthesis, initial encounter (principal); T84.038A Mechanical loosening of other internal prosthetic joint, initial encounter; S42.143A Displaced fracture of glenoid cavity of scapula, unspecified shoulder, initial encounter for closed fracture; Z96.611 Presence of right artificial shoulder joint; Y79.2 Prosthetic and other implants, materials and accessory orthopedic devices associated with adverse incidents; I48.2 Chronic atrial fibrillation; I25.10 Atherosclerotic heart disease of native coronary artery without angina pectoris; J45.20 Mild intermittent asthma, uncomplicated; I10 Essential (primary) hypertension; E03.9 Hypothyroidism, unspecified; E78.5 Hyperlipidemia, unspecified; E78.00 Pure hypercholesterolemia, unspecified; Z95.810 Presence of automatic (implantable) cardiac defibrillator; Z95.5 Presence of coronary angioplasty implant and graft; Z79.02 Long term (current) use of antithrombotics/antiplatelets; Y92.9 Unspecified place or not applicable